=== PATIENT | male | born 1965 | race Caucasian/White ===

== ENCOUNTER 2017-01-09 10:45 | Emergency (ER) | payer SELFPAY ==
[2017-01-09] MEDS ORDERED: NORMAL SALINE 1000 ML 1,000 ML IV ONE (11:10)
[2017-01-09 11:23] LABS: PROTHROMBIN TIME 13.8 SEC (11.4-15.4)
[2017-01-09 11:26] LABS: ABSOLUTE BASOPHILS # (AUTO) 0.1 10^3/uL (0.0-0.2); ABSOLUTE EOSINOPHILS # (AUTO) 0.3 10^3/uL (0.0-0.6); ABSOLUTE LYMPHOCYTES (AUTO) 2.4 10^3/uL (0.5-4.7); ABSOLUTE MONOCYTES (AUTO) 1.6 10^3/uL (0.1-1.4); ABSOLUTE NEUT (AUTO) 6.9 10^3/uL (1.7-8.2); BASOPHILS % (AUTO) 0.7 % (0-2); EOSINOPHILS % (AUTO) 2.4 % (0-6); HEMATOCRIT 39.2 % (37.9-51.0); HEMOGLOBIN 13.2 g/dL (13.5-17.0); HGB HCT DIFFERENCE 0.4; LYMPHOCYTES % (AUTO) 21.3 % (13-45); MEAN CORPUSCULAR HEMOGLOBIN 30.6 pg (27.0-33.4); MEAN CORPUSCULAR HGB CONC 33.6 g/dL (32.0-36.0); MEAN CORPUSCULAR VOLUME 91 fl (80-97); MONOCYTES % (AUTO) 14.2 % (3-13); RED BLOOD COUNT 4.31 10^6/uL (4.35-5.55); RED CELL DISTRIBUTION WIDTH 13.3 % (11.5-14.0); SEGMENTED NEUTROPHILS % (AUTO) 61.4 % (42-78); WHITE BLOOD COUNT 11.3 10^3/uL (4.0-10.5)
[2017-01-09 11:49] LABS: ALANINE AMINOTRANSFERASE 26 U/L (21-72); ALBUMIN 4.1 g/dL (3.5-5.0); ALKALINE PHOSPHATASE 86 U/L (38-126); ANION GAP 14 (5-19); ASPARTATE AMINO TRANSFERASE 17 U/L (17-59); BILIRUBIN,DIRECT 0.5 mg/dL (0.0-0.4); BLOOD UREA NITROGEN 20 mg/dL (7-20); CALCIUM 9.8 mg/dL (8.4-10.2); CARBON DIOXIDE 21 mmol/L (22-30); CHLORIDE 104 mmol/L (98-107); CREATININE RESULT 1.26 mg/dL (0.52-1.25); GLUCOSE 117 mg/dL (75-110); LIPASE 183.5 U/L (23-300); POTASSIUM 4.1 mmol/L (3.6-5.0); SODIUM 138.6 mmol/L (137-145); TOTAL PROTEIN 7.5 g/dL (6.3-8.2)
--- NOTE | 2017-01-09 12:23 | RADIOLOGY REPORT (SQ) ---
EXAM DESCRIPTION: ACUTE ABDOMEN SERIES COMPLETED DATE/TIME: 01/09/2017 12:09 pm REASON FOR STUDY: abdominal pain COMPARISON: None. NUMBER OF VIEWS: Three views. TECHNIQUE: Frontal chest, supine abdomen and upright/decubitus abdomen radiographic images acquired. LIMITATIONS: None. FINDINGS: CHEST: Lungs clear of infiltrates. FREE AIR: None. No abnormal gas collections. BOWEL GAS PATTERN: Nonobstructive pattern. No dilated loops or air fluid levels. CALCIFICATIONS: No suspicious calcifications. HARDWARE: None in the abdomen. SOFT TISSUES: No gross mass or suggestion of organomegaly. BONES: No acute fracture. No worrisome bone lesions. OTHER: No other significant finding. IMPRESSION: NO RADIOGRAPHIC EVIDENCE FOR ACUTE ABDOMINAL DISEASE. TECHNICAL DOCUMENTATION: JOB ID: [id number] [employer]- All Rights Reserved
--- NOTE | 2017-01-09 13:39 | ER Document Report ---
ED GI Bleed / Rectal Pain - General Chief Complaint: Bloody Stools Stated Complaint: BLOOD IN STOOL Time Seen by Provider: 01/09/17 10:57 Notes: Patient is a 51 year old male who presents to the ED complaining of rectal bleeding with lower abdominal pain. States that his GI bleed started 7 days ago and become progressively worse over the past 7 days. Patient states that initially it was 1 bright red blood per rectum bowel movement but over the past 3 days has progressed to multiple bowel movements a day greater than 4 a day that have been jazmine blood with minimal stool. He also admits to lower abdominal pain worse in the right lower quadrant but diffusely tender. Admits to nausea without vomiting. Admits to lightheadedness and dizziness that is gotten worse over the past 2 days. Of hospital records revealed the patient was evaluated here in 2013 for similar complaints and was shown to have ascending colon formation. Patient was discharged on antibiotics and steroids at that time and told to follow-up with gastroenterology. 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. Past medical history significant for of [place] spotted fever, degenerative disc disease. Patient is a current tobacco use with a 66-goja-lowl history, admits to daily alcohol use but has not been drinking over the past week and a half. Denies any drug use. Denies any allergies. TRAVEL OUTSIDE OF THE [place] IN LAST 30 DAYS: No - Related Data Allergies/Adverse Reactions: No Known Allergies Allergy (Verified 07/03/14 02:17) Past Medical History - Social History Smoking Status: Current Every Day Smoker Chew tobacco use (# tins/day): No Frequency of alcohol use: Occasional Drug Abuse: None Family History: CAD, CVA, Hyperlipidemia, Hypertension, Malignancy Patient has suicidal ideation: No Patient has homicidal ideation: No Renal/ Medical History: Denies: Hx Peritoneal Dialysis Musculoskeltal Medical History: Reports Hx Musculoskeletal Deformity, Reports Hx Musculoskeletal Trauma Surgical Hx: Negative - Immunizations Hx Diphtheria, Pertussis, Tetanus Vaccination: Yes Review of Systems - Review of Systems Constitutional: See HPI Cardiovascular: No symptoms reported Respiratory: No symptoms reported Gastrointestinal: See HPI Genitourinary: No symptoms reported -: Yes All other systems reviewed and negative Physical Exam - Vital signs Vitals: Temp Pulse Resp BP Pulse Ox 97.7 F 112 H 22 H 87/43 L 100 01/09/17 10:48 01/09/17 10:48 01/09/17 10:48 01/09/17 10:48 01/09/17 10:48 Interpretation: Hypotensive - Notes Notes: PHYSICAL EXAM GENERAL: Alert, interacts well. HEAD: Normocephalic, atraumatic. EYES: Pupils equal, round, and reactive to light. Extraocular movements intact. ENT: Oral mucosa moist, tongue midline. NECK: Full range of motion. Supple. Trachea midline. LUNGS: Clear to auscultation bilaterally, no wheezes, rales, or rhonchi. No respiratory distress. HEART: Regular rate and rhythm. No murmurs, gallops, or rubs. ABDOMEN: Soft, nondistended, minimally tender diffusely. No guarding, rebound, or rigidity.. Bowel sounds present in all 4 quadrants. RECTAL: tender on digital exam, prostate normal. BRB noted on glove. see labs for guiac EXTREMITIES: Moves all 4 extremities spontaneously. No edema, radial and dorsalis pedis pulses 2/4 bilaterally. No cyanosis. NEUROLOGICAL: Alert and oriented x4. Normal speech. PSYCH: Normal affect, normal mood. SKIN: Warm, dry, normal turgor. No rashes or lesions noted. Course - Re-evaluation Re-evalutation: 01/09/17 13:56 Patient is a 51-year-old male who is hemodynamically stable, no acute distress and afebrile. Patient with positive lower GI bleed with concerns for colon inflammation. Hemoglobin and hematocrit are stable at 13.2/39.2. patient has been noncompliant with follow-up with gastroenterology so has no formal diagnosis of ulcerative colitis or Crohn's. As the patient's symptoms have become progressively worse over the past week, transfer has been initiated to [facility] where GI is available for inpatient evaluation and colonoscopy. Patient has been accepted by Dr. Winslow hospitalist. Patient sent for for CT of the abdomen and pelvis with IV contrast per request of accepting institution CT Abd and Pelvis with IV contrast shows: MILD DIFFUSE MURAL THICKENING INVOLVING THE ENTIRE COLON AND TERMINAL ILEUM COMPATIBLE WITH INFECTIOUS OR INFLAMMATORY BOWEL DISEASE AND SIMILAR IN APPEARANCE TO STUDY FROM 07/03/2014. CORRELATE WITH ANY CLINICAL HISTORY OF CROHN'S OR ULCERATIVE COLITIS. Per [facility] protocol and guidelines, this case was discussed with supervising physician Mariana Villalobos prior to transfer 01/09/17 15:08 Patient has received bed assignment. Transportation pending 01/09/17 16:18 Transport has arrived. patient is stable, no acute distress and afebrile. Blood pressures have remained in the systolics of 100 with a heart rate in the high 90s. Patient states that his pain is 1 out of 5 and nausea has resolved since he received medication. Patient is stable for transportation - Vital Signs Vital signs: Temp Pulse Resp BP Pulse Ox 97.7 F 112 H 15 94/61 L 99 01/09/17 10:48 01/09/17 10:48 01/09/17 15:01 01/09/17 16:01 01/09/17 16:01 - Laboratory Result Diagrams: 01/09/17 11:00 01/09/17 11:00 Laboratory results interpreted by me: 01/09/17 01/09/17 11:00 11:00 WBC 11.3 H RBC 4.31 L Hgb 13.2 L Monocytes % 14.2 H Absolute Monocytes 1.6 H Carbon Dioxide 21 L Creatinine 1.26 H Glucose 117 H Direct Bilirubin 0.5 H - Diagnostic Test Radiology reviewed: Image reviewed, Reports reviewed Discharge - Discharge Clinical Impression: Lower GI bleed Condition: Stable Disposition: [facility] / [facility]
[2017-01-09] MEDS ORDERED: MORPHINE SULFATE 10 MG/ML INJ IV ONE (13:52)
[2017-01-09] MEDS ORDERED: NORMAL SALINE 1000 ML 1,000 ML IV PRN (14:18)
--- NOTE | 2017-01-09 14:32 | RADIOLOGY REPORT (SQ) ---
EXAM DESCRIPTION: CT ABD/PELVIS WITH IV ONLY COMPLETED DATE/TIME: 01/09/2017 2:19 pm REASON FOR STUDY: pain, bright red blood per rectum COMPARISON: 07/03/2014 TECHNIQUE: CT scan of the abdomen and pelvis performed using helical scanning technique with dynamic intravenous contrast injection. No oral contrast. Images reviewed with lung, soft tissue, and bone windows. Reconstructed coronal and sagittal MPR images reviewed. Delayed images for evaluation of the urinary system also acquired. All images stored on PACS. All CT scanners at this facility use dose modulation, iterative reconstruction, and/or weight based d osing when appropriate to reduce radiation dose to as low as reasonably achievable (ALARA). [facility]: Dose Right [facility]: CareDose [facility]: Dose Right [facility]: Teradose 4D [facility]: [employer] CONTRAST TYPE AND DOSE: 93mL Isovue 370- low osmolar. RENAL FUNCTION: Creatinine measures 1.26 RADIATION DOSE: 16.46mGy. LIMITATIONS: None. FINDINGS: LOWER CHEST: No significant findings. No nodules or infiltrates. LIVER: Normal size. No masses or dilated ducts. SPLEEN: Normal size. No focal lesions. PANCREAS: No masses. No significant calcifications. No adjacent inflammation or peripancreatic fluid collections. Pancreatic duct not dilated. GALLBLADDER: No identified stones by CT criteria. No inflammatory changes to suggest cholecystitis. ADRENAL GLANDS: No significant masses or asymmetry. RIGHT KIDNEY AND URETER: No solid masses. No significant calcifications. No hydronephrosis or hyd roureter. LEFT KIDNEY AND URETER: No solid masses. No significant calcifications. No hydronephrosis or hydr oureter. AORTA AND VESSELS: No aneurysm. No dissection. Renal arteries, SMA, celiac without stenosis. RETROPERITONEUM: No retroperitoneal adenopathy, hemorrhage or masses. BOWEL AND PERITONEAL CAVITY: There is mild diffuse mural thickening involving the entire colon and te rminal ileum compatible with infectious or inflammatory bowel disease. No pneumatosis, abscess, or f ree air. APPENDIX: Normal. PELVIS: No mass or free fluid. Normal bladder. ABDOMINAL WALL: No masses. No hernias. BONES: No significant or acute findings. OTHER: No other significant finding. IMPRESSION: MILD DIFFUSE MURAL THICKENING INVOLVING THE ENTIRE COLON AND TERMINAL ILEUM COMPATIBLE W ITH INFECTIOUS OR INFLAMMATORY BOWEL DISEASE AND SIMILAR IN APPEARANCE TO STUDY FROM 07/03/2014. COR RELATE WITH ANY CLINICAL HISTORY OF CROHN'S OR ULCERATIVE COLITIS. TECHNICAL DOCUMENTATION: JOB ID: [id number] Quality ID # [id number]: Final reports with documentation of one or more dose reduction techniques (e.g., Au tomated exposure control, adjustment of the mA and/or kV according to patient size, use of iterative reconstruction technique) 2010 [employer]- All Rights Reserved
[2017-01-09 16:10] VITALS: BP 94/61
== END 2017-01-09 16:38 | disposition short-term general hospital (02) ==
LOC: ER 10:45
DX: K92.2 Gastrointestinal hemorrhage, unspecified (principal); R19.5 Other fecal abnormalities; R10.30 Lower abdominal pain, unspecified; R42 Dizziness and giddiness; R10.10 Upper abdominal pain, unspecified; F17.210 Nicotine dependence, cigarettes, uncomplicated
CPT/HCPCS: 99285; 96374; 36415; 83690; 85025; 85610; 82272; 80053; 83605; 74022; 74177; J2270; J7030

== ENCOUNTER 2017-04-03 01:11 | Emergency (ER) | payer SELFPAY ==
--- NOTE | 2017-04-03 04:39 | ER Document Report ---
HPI - HPI Pain Level: 4 Notes: Patient is a 51-year-old male with a history of Crohn's disease who presents the ED complaining of several issues. Patient complains of left shoulder pain without any known injury. Patient states that the pain does not radiate and stays in that left arm. Patient states that he has difficulty moving that arm due to pain. The pain is described as sharp. Patient also complains of feeling feverish for 2 days with nasal congestion/discharge, and dry cough 1 week. Patient states that he has a sharp pain in his inferior lungs bilaterally. Patient also complains of abdominal pain that is epigastric and right lower quadrant primarily that is sharp and constant. Patient states that he did run out of his Pentasa medication. Patient has been having normal loose stools. He does not have any associated nausea or vomiting. He is tolerating food and liquids. He denies any drug allergies. [facility]. He does not have a manager asset. Denies any headache, documented fever, head injury, neck pain/stiffness, changes in vision/speech/ mentation/hearing, sore throat, palpitations, syncope, shortness of breath, wheeze, dyspnea, nausea/vomiting/diarrhea, urinary retention, dysuria, hematuria , loss of control of bowel or bladder, numbness/tingling, saddle anesthesia, muscle paralysis/weakness, or rash. + smoking. denies drugs or recent ETOH. - ROS Notes: REVIEW OF SYSTEMS: CONSTITUTIONAL : see hpi. Denies recent illness. EENT: see hpi CARDIOVASCULAR: see hpi RESPIRATORY: see hpi GASTROINTESTINAL: see hpi GENITOURINARY: Denies difficulty urinating, painful urination, burning, frequency, blood in urine, or discharge. MUSCULOSKELETAL: see hpi SKIN: Denies rash, lesions or sores. NEUROLOGICAL: Denies confusion or altered mental status. Denies passing out or loss of consciousness. Denies dizziness or lightheadedness. Denies headache. Denies weakness or paralysis or loss of use of either side. Denies problems with gait or speech. Denies sensory loss, numbness, or tingling. ALL OTHER SYSTEMS REVIEWED AND NEGATIVE. Dictation was performed using [employer] voice recognition software - REPRODUCTIVE Reproductive: DENIES: : - DERM Skin Color: Normal, [place] Past Medical History - Social History Smoking Status: Current Every Day Smoker Family History: CAD, CVA, Hyperlipidemia, Hypertension, Malignancy Renal/ Medical History: Denies: Hx Peritoneal Dialysis Musculoskeltal Medical History: Reports Hx Musculoskeletal Deformity, Reports Hx Musculoskeletal Trauma - Immunizations Hx Diphtheria, Pertussis, Tetanus Vaccination: Yes Vertical Provider Document - CONSTITUTIONAL Agree With Documented VS: Yes Notes: PHYSICAL EXAMINATION: GENERAL: Well-appearing, well-nourished and in no acute distress. HEAD: Atraumatic, normocephalic. EYES: Pupils equal round and reactive to light, extraocular movements intact, sclera anicteric, conjunctiva are normal. ENT: EAC clear b/l. TM's intact b/l without erythema, fluid, or perforation. Nares patent and without discharge. oropharynx clear without exudates. No tonsilar hypertrophy or erythema. Moist mucous membranes. No sinus tenderness. NECK: Normal range of motion, supple without lymphadenopathy. No rigidity/ meningismus. LUNGS: Breath sounds clear to auscultation bilaterally and equal. No wheezes rales or rhonchi. HEART: Regular rate and rhythm without murmurs, rubs, gallops. ABDOMEN: Soft, nondistended abdomen. no rebound. No masses appreciated. Normal bowel sounds present. No CVA tenderness bilaterally. + tenderness to palp of the RLQ, LLQ, and epigastrum. + mild guarding. Musculoskeletal: Lt UE: FROM to passive. Pt will not move his arm through ROM. Strength 5+/5. N/V intact. Dr. Quintanilla and I believe that he is exaggerating his pain symptoms. He was c/o severe pain with iv tubing in his arm while blood being drawn out (needle was already withdrawn). No erythema, abrasion, laceration, deformity, or swelling noted to the shoulder. Extremities: No cyanosis, clubbing, or edema b/l. Peripheral pulses 2+. Capillary refill less than 3 seconds. NEUROLOGICAL: Cranial nerves grossly intact. Normal speech. Normal sensory, motor exams PSYCH: Normal mood, normal affect. SKIN: Warm, Dry, normal turgor, no rashes or lesions noted. - INFECTION CONTROL TRAVEL OUTSIDE OF THE [place] IN LAST 30 DAYS: No - RESPIRATORY O2 Sat by Pulse Oximetry: 99 Course - Re-evaluation Re-evalutation: 04/03/17 05:25 Patient is an afebrile, well-hydrated, 51-year-old male who presents the ED with a URI, left shoulder pain, and abdominal pain. Vitals are stable. I suspect that his URI is viral and that his abdominal pain is an acute exacerbation of his COPD. Reviewed case with Dr. Quintanilla who also evaluated the patient and is in agreement with plan/discharge. CBC, CMP, lipase, urinalysis were unremarkable for any acute pathology. Left shoulder x-ray and chest x-ray were unremarkable for any acute pathology. No other imaging warranted at this time. Sling given today. Patient states that he was on Pentasa which worked really well for him until he ran out of medication recently. We will send him home with a new prescription for his Pentasa for a 2 week dose, but patient will need to get a refill within those 2 weeks to continue treatment for his PCM. I will also send him home with voltarin gel to use as needed. Recheck with his PCM this week. Schedule an appointment with gastroenterology. schedule follow-up with orthopedics. Consider consult with physical therapy as well. Return to the ED with any worsening/concerning symptoms otherwise as reviewed in discharge. Patient is in agreement. - Vital Signs Vital signs: Temp Pulse Resp BP Pulse Ox 97.4 F 102 H 16 117/74 99 04/03/17 01:42 04/03/17 01:42 04/03/17 01:42 04/03/17 01:42 04/03/17 01:42 - Laboratory Result Diagrams: 04/03/17 04:20 04/03/17 04:20 Discharge - Discharge Clinical Impression: Crohn disease Qualifiers: Gastrointestinal tract location: unspecified location Digestive disease complication type: without complication Qualified Code(s): K50.90 - Crohn's disease, unspecified, without complications Shoulder pain Qualifiers: Chronicity: acute Laterality: left Qualified Code(s): M25.512 - Pain in left shoulder URI (upper respiratory infection) Qualifiers: URI type: unspecified viral URI Qualified Code(s): J06.9 - Acute upper respiratory infection, unspecified Condition: Stable Disposition: HOME, SELF-CARE Instructions: Abdominal Pain ([facility]), Acetaminophen, Crohn's Disease ([facility]), Ice & Elevation ([facility]), Irritable Bowel Syndrome ([facility]), Temporary Sling ([facility]), Viral Syndrome ([facility]), Warm Packs ([facility]) Additional Instructions: Rest, Ice, Compression, Elevation Use sling as directed Tylenol/ibuprofen as needed Take medication as directed Low fat diet Maintain adequate fluid intake Light stretches daily Strength exercises as able Moist heat and massage may help F/u with your PCP in 2-3 days for a recheck Schedule a f/u with a manager asset* Consider consult(s) with Orthopedics/physical therapy for ongoing/worsening symptoms Return to the ED with any worsening symptoms and/or development of fever, headache, chest pain, palpitations, syncope, shortness of breath, trouble breathing, abdominal pain, n/v/d, blood in stool/urine, loss of control of bowel /bladder, urinary retention, muscle weakness/paralysis, saddle anesthesia, numbness/tingling, redness/swelling/warmth of the shoulder, or other worsening symptoms that are concerning to you. Prescriptions: Diclofenac Sodium [Voltaren] 4 gm TP QID PRN #100 gel..gm. PRN Reason: Mesalamine [Pentasa] 1,000 mg PO QID #112 capsule.sa Forms: Smoking Cessation Education Referrals: LUH HOFFMANN MD [ACTIVE STAFF] - Follow up in 3-5 days [facility] [Provider Group] - Follow up in 3-5 days
[2017-04-03 04:41] LABS: ABSOLUTE BASOPHILS # (AUTO) 0.1 10^3/uL (0.0-0.2); ABSOLUTE EOSINOPHILS # (AUTO) 0.3 10^3/uL (0.0-0.6); ABSOLUTE LYMPHOCYTES (AUTO) 1.3 10^3/uL (0.5-4.7); ABSOLUTE MONOCYTES (AUTO) 0.9 10^3/uL (0.1-1.4); ABSOLUTE NEUT (AUTO) 5.8 10^3/uL (1.7-8.2); BASOPHILS % (AUTO) 0.9 % (0-2); EOSINOPHILS % (AUTO) 3.6 % (0-6); HEMATOCRIT 36.1 % (37.9-51.0); HEMOGLOBIN 11.6 g/dL (13.5-17.0); HGB HCT DIFFERENCE -1.3; LYMPHOCYTES % (AUTO) 15.6 % (13-45); MEAN CORPUSCULAR HEMOGLOBIN 24.2 pg (27.0-33.4); MEAN CORPUSCULAR VOLUME 76 fl (80-97); MONOCYTES % (AUTO) 10.8 % (3-13); RED BLOOD COUNT 4.78 10^6/uL (4.35-5.55); SEGMENTED NEUTROPHILS % (AUTO) 69.1 % (42-78); WHITE BLOOD COUNT 8.4 10^3/uL (4.0-10.5)
[2017-04-03 04:50] LABS: ALANINE AMINOTRANSFERASE 26 U/L (21-72); ALBUMIN 3.6 g/dL (3.5-5.0); ALKALINE PHOSPHATASE 72 U/L (38-126); ANION GAP 9 (5-19); ASPARTATE AMINO TRANSFERASE 15 U/L (17-59); BILIRUBIN,DIRECT 0.4 mg/dL (0.0-0.4); BILIRUBIN,TOTAL 0.5 mg/dL (0.2-1.3); BLOOD UREA NITROGEN 15 mg/dL (7-20); CALCIUM 9.4 mg/dL (8.4-10.2); CARBON DIOXIDE 26 mmol/L (22-30); CHLORIDE 107 mmol/L (98-107); CREATININE RESULT 0.85 mg/dL (0.52-1.25); GLUCOSE 99 mg/dL (75-110); POTASSIUM 4.5 mmol/L (3.6-5.0); SODIUM 141.6 mmol/L (137-145)
--- NOTE | 2017-04-03 05:08 | RADIOLOGY REPORT (SQ) ---
EXAM DESCRIPTION: CHEST SINGLE VIEW COMPLETED DATE/TIME: 04/03/2017 4:48 am REASON FOR STUDY: cough COMPARISON: 11/09/2015. EXAM PARAMETERS: NUMBER OF VIEWS: One view. TECHNIQUE: Single frontal radiographic view of the chest acquired. RADIATION DOSE: NA LIMITATIONS: None. FINDINGS: LUNGS AND PLEURA: No opacities, masses or pneumothorax. No pleural effusion. Prominent in terstitium, chronic. MEDIASTINUM AND HILAR STRUCTURES: No masses. Contour normal. HEART AND VASCULAR STRUCTURES: Heart normal in size. Normal vasculature. BONES: No acute findings. HARDWARE: None in the chest. OTHER: No other significant finding. IMPRESSION: No acute cardiopulmonary findings. TECHNICAL DOCUMENTATION: JOB ID: [id number]
--- NOTE | 2017-04-03 05:10 | RADIOLOGY REPORT (SQ) ---
EXAM DESCRIPTION: SHOULDER LEFT 2 OR MORE VIEWS COMPLETED DATE/TIME: 04/03/2017 4:48 am REASON FOR STUDY: left shoulder pain COMPARISON: None. NUMBER OF VIEWS: Three views. TECHNIQUE: Internal rotation, external rotation, and Y view images acquired of the left shoulder. LIMITATIONS: None. FINDINGS: MINERALIZATION: Normal. BONES: No acute fracture or dislocation. 0.2 cm subchondral degenerative cysts or chronic erosive di sease of distal left clavicle. JOINTS: No dislocation. VISUALIZED LUNGS AND RIBS: No pneumothorax. No rib fracture. SOFT TISSUES: No radiopaque foreign body. OTHER: No other significant finding. IMPRESSION: No acute findings. 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 TECHNICAL DOCUMENTATION: JOB ID: [id number] [employer]- All Rights Reserved
[2017-04-03 05:20] LABS: APPEARANCE,URINE SLIGHTLY-CLOUDY; BILIRUBIN,URINE NEGATIVE (NEGATIVE); CALCIUM OXALATE CRYSTALS,URINE FEW /HPF; GLUCOSE, URINE NEGATIVE (NEGATIVE); KETONES,URINE NEGATIVE (NEGATIVE); LEUKOCYTE ESTERASE,URINE NEGATIVE (NEGATIVE); NITRITE,URINE NEGATIVE (NEGATIVE); PROTEIN,URINE NEGATIVE (NEGATIVE); URINE SPECIFIC GRAVITY 1.033; UROBILINOGEN,URINE NEGATIVE mg/dL (<2.0)
[2017-04-03 05:58] VITALS: BP 114/70
== END 2017-04-03 05:55 | disposition home or self-care (01) ==
LOC: ER 01:11
DX: K50.90 Crohn's disease, unspecified, without complications (principal); J06.9 Acute upper respiratory infection, unspecified; M25.512 Pain in left shoulder; F17.200 Nicotine dependence, unspecified, uncomplicated
CPT/HCPCS: 36415; 71010; 80053; 81001; 83690; 85025; 99284

== ENCOUNTER 2017-10-23 08:55 | Emergency (ER) | payer OTHER ==
--- NOTE | 2017-10-23 10:08 | ER Document Report ---
ED General - General Chief Complaint: Abdominal Pain Stated Complaint: ABDOMINAL PAIN Time Seen by Provider: 10/23/17 09:54 TRAVEL OUTSIDE OF THE [place] IN LAST 30 DAYS: No - HPI Notes: Patient is a 52-year-old male with a history of Crohn's disease who presents to the ED with multiple complaints. Patient states that he has nasal congestion discharge as well as left sinus pressure and left dental pain #14 and body aches. Patient states that he also has a sharp right-sided chest pain that is worse when he pushes on it. The pain does not radiate. Patient also complains of epigastric bloating and cramping. Patient states that his symptoms have been ongoing for the last week. Patient states that he has felt weak for about 2 weeks. Patient states that he is eating and drinking without any difficulties , but does have a decreased p.o. intake. He is urinating normally having normal bowel movements but the last one being this morning. Patient denies any significant cardiopulmonary medical history. Patient does admit to smoking but denies IV drug use. He denies any drug allergies. Denies any prolonged travel , prolonged immobilization, recent surgery/trauma, hormone replacement, previous DVT/PE. Denies any headache, fever, neck pain, URI, sore throat, palpitations, syncope, cough, shortness of breath, wheeze, dyspnea, nausea/ vomiting/diarrhea, urinary retention, dysuria, hematuria, back pain, loss of control of bowel or bladder, numbness/tingling, saddle anesthesia, muscle paralysis/weakness, or rash. - Related Data Allergies/Adverse Reactions: No Known Allergies Allergy (Verified 10/23/17 09:02) Past Medical History - Social History Smoking Status: Current Every Day Smoker Chew tobacco use (# tins/day): No Frequency of alcohol use: None Drug Abuse: None Family History: CAD, CVA, Hyperlipidemia, Hypertension, Malignancy Patient has suicidal ideation: No Patient has homicidal ideation: No Renal/ Medical History: Denies: Hx Peritoneal Dialysis Musculoskeltal Medical History: Reports Hx Musculoskeletal Deformity, Reports Hx Musculoskeletal Trauma Past Surgical History: Reports: Hx Orthopedic Surgery - shrapnel removed from L shoulder - Immunizations Hx Diphtheria, Pertussis, Tetanus Vaccination: Yes Review of Systems - Review of Systems -: Yes All other systems reviewed and negative Physical Exam - Vital signs Vitals: Temp Pulse Resp BP Pulse Ox 98.2 F 89 18 124/76 98 10/23/17 09:16 10/23/17 09:16 10/23/17 09:16 10/23/17 09:16 10/23/17 09:16 - Notes Notes: PHYSICAL EXAMINATION: GENERAL: Well-appearing, well-nourished and in no acute distress. A&Ox4. Answers questions appropriately. Moves around comfortably. HEAD: Atraumatic, normocephalic. EYES: Pupils equal round and reactive to light, extraocular movements intact, sclera anicteric, conjunctiva are normal. ENT: EAC clear b/l. TM's intact b/l without erythema, fluid, or perforation. Nares patent and without discharge. oropharynx clear without exudates. No tonsilar hypertrophy or erythema. Moist mucous membranes. No sinus tenderness. Uvula midline. No palatine shift. No tongue protrusion. No respiratory compromise. Mouth: Poor dentition throughout. + decay and mild gingivitis. No obvious abscess or discharge noted. No facial swelling. + tenderness to tooth #14. NECK: Normal range of motion, supple without lymphadenopathy Chest: + tenderness to the rt lateral chest wall, correlates with pain described. Equal rise/fall. No flail chest. LUNGS: Breath sounds clear to auscultation bilaterally and equal. No wheezes rales or rhonchi. No retractions HEART: Regular rate and rhythm without murmurs, rubs, gallops. ABDOMEN: Soft, nondistended abdomen. No guarding, no rebound. No masses appreciated. Normal bowel sounds present. No CVA tenderness bilaterally. + mild tenderness to the epigastrum. Hartman neg. No tenderness at McBurney point. Musculoskeletal: FROM to passive/active. Strength 5+/5. Sahara neg b/l. Calves are soft, non-tender. Extremities: No cyanosis, clubbing, or edema b/l. Peripheral pulses 2+. Capillary refill less than 3 seconds. NEUROLOGICAL: Cranial nerves grossly intact. Normal speech, normal gait. Normal sensory, motor exams PSYCH: Normal mood, normal affect. SKIN: Warm, Dry, normal turgor, no rashes or lesions noted. Course - Re-evaluation Re-evalutation: 10/23/17 14:03 Patient is an afebrile, well-hydrated, 52-year-old male who presents to the ED with dental pain, suspect infection versus nerve root etiology, chest wall pain , suspect inflammatory. Vitals are acceptable. PE is otherwise unremarkable. CBC, CMP, cardiac enzymes 2/EKG, lipase, chest x-ray, urinalysis were unremarkable for any acute pathology. heart score of 2. No other labs or imaging warranted at this time based on H&P. Low suspicion for any meningitis, sepsis, peritonsillar/pharyngeal abscess, respiratory compromise, Ghassan's, temporal arteritis, ACS, PE, pneumothorax, pericarditis, dissection, respiratory compromise, severe dehydration, or other emergent systemic condition at this time. Patient is aware this condition can change from initial presentation and he needs to monitor symptoms closely. I will send him home with a prescription for penicillin to take as directed. Conservative measures otherwise for symptoms. Call to schedule an appointment with a dentist for further evaluation and management. Recheck with your PCM this week as well. Consider consult with a senior health consultant. Return to the ED with any worsening/concerning symptoms otherwise as reviewed in discharge. Patient is in agreement. - Vital Signs Vital signs: Temp Pulse Resp BP Pulse Ox 98.2 F 89 23 H 116/80 97 10/23/17 09:16 10/23/17 09:16 10/23/17 13:01 10/23/17 13:01 10/23/17 13:01 - Laboratory Result Diagrams: 10/23/17 09:50 10/23/17 09:50 Laboratory results interpreted by me: 10/23/17 10/23/17 10/23/17 09:50 09:50 09:50 RDW 18.2 H Chloride 110 H AST 14 L Creatine Kinase Lipase 309.1 H Urine Urobilinogen 2.0 H 10/23/17 09:50 RDW Chloride AST Creatine Kinase 34 L Lipase Urine Urobilinogen Discharge - Discharge Clinical Impression: Pain, dental, Chest wall pain Condition: Stable Disposition: HOME, SELF-CARE Instructions: Chest Wall Pain ([facility]), Abdominal Pain ([facility]), Penicillin V K ([facility]) , Toothache ([facility]) Additional Instructions: Parsons and floss twice daily Maintain fluid intake Take antibiotics as directed Mouthwash, salt water gargles, peroxide rinse as needed Tylenol/ibuprofen as needed Recheck with PCM this week Call today/tomorrow and schedule an appointment with your dentist for further evaluation Consider consult with a senior health consultant Return to the ED with any worsening symptoms and/or development of fever, headache, facial swelling, swelling of lips/tongue/throat, trouble swallowing, drooling, hoarseness, neck pain/stiffness, chest pain, palpitations, syncope, shortness of breath, trouble breathing, abdominal pain, n/v/d, numbness/tingling , or other worsening symptoms that are concerning to you. Prescriptions: Omeprazole 20 mg PO DAILY #30 tablet. Penicillin V Potassium [Penicillin Vk 250 mg Tablet] 500 mg PO BID #40 tablet Forms: Smoking Cessation Education Referrals: LUH HOFFMANN MD [ACTIVE STAFF] - Follow up as needed AWA SERNA MD [ACTIVE STAFF] - Follow up as needed ELPIDIO MORA MD [ACTIVE STAFF] - Follow up as needed [facility] [Provider Group] - Follow up as needed
[2017-10-23 10:15] LABS: ABSOLUTE BASOPHILS # (AUTO) 0.1 10^3/uL (0.0-0.2); ABSOLUTE EOSINOPHILS # (AUTO) 0.3 10^3/uL (0.0-0.6); ABSOLUTE LYMPHOCYTES (AUTO) 1.4 10^3/uL (0.5-4.7); ABSOLUTE MONOCYTES (AUTO) 0.7 10^3/uL (0.1-1.4); ABSOLUTE NEUT (AUTO) 4.7 10^3/uL (1.7-8.2); BASOPHILS % (AUTO) 0.8 % (0-2); EOSINOPHILS % (AUTO) 4.6 % (0-6); HEMOGLOBIN 14.4 g/dL (13.5-17.0); LYMPHOCYTES % (AUTO) 19.4 % (13-45); MEAN CORPUSCULAR HEMOGLOBIN 29.6 pg (27.0-33.4); MEAN CORPUSCULAR HGB CONC 33.5 g/dL (32.0-36.0); MEAN CORPUSCULAR VOLUME 89 fl (80-97); MONOCYTES % (AUTO) 9.9 % (3-13); PLATELET COUNT 152 10^3/uL (150-450); RED BLOOD COUNT 4.86 10^6/uL (4.35-5.55); RED CELL DISTRIBUTION WIDTH 18.2 % (11.5-14.0); SEGMENTED NEUTROPHILS % (AUTO) 65.3 % (42-78); TOTAL CELLS COUNTED % (AUTO) 100 %; WHITE BLOOD COUNT 7.1 10^3/uL (4.0-10.5)
[2017-10-23 10:21] LABS: APPEARANCE,URINE CLEAR; BILIRUBIN,URINE NEGATIVE (NEGATIVE); COLOR,URINE YELLOW; GLUCOSE, URINE NEGATIVE (NEGATIVE); KETONES,URINE NEGATIVE (NEGATIVE); LEUKOCYTE ESTERASE,URINE NEGATIVE (NEGATIVE); NITRITE,URINE NEGATIVE (NEGATIVE); PROTEIN,URINE NEGATIVE (NEGATIVE); URINE SPECIFIC GRAVITY 1.027
[2017-10-23 10:38] LABS: ALANINE AMINOTRANSFERASE 25 U/L (21-72); ALBUMIN 4.1 g/dL (3.5-5.0); ALKALINE PHOSPHATASE 64 U/L (38-126); ANION GAP 9 (5-19); ASPARTATE AMINO TRANSFERASE 14 U/L (17-59); BILIRUBIN,DIRECT 0.4 mg/dL (0.0-0.4); BILIRUBIN,TOTAL 0.5 mg/dL (0.2-1.3); BLOOD UREA NITROGEN 11 mg/dL (7-20); CALCIUM 9.1 mg/dL (8.4-10.2); CARBON DIOXIDE 23 mmol/L (22-30); CHLORIDE 110 mmol/L (98-107); GLUCOSE 98 mg/dL (75-110); LIPASE 309.1 U/L (23-300); POTASSIUM 4.3 mmol/L (3.6-5.0); SODIUM 142.2 mmol/L (137-145); TOTAL PROTEIN 7.3 g/dL (6.3-8.2)
--- NOTE | 2017-10-23 10:40 | RADIOLOGY REPORT (SQ) ---
EXAM DESCRIPTION: CHEST PA/LAT COMPLETED DATE/TIME: 10/23/2017 10:29 am REASON FOR STUDY: epigastric/chest pain COMPARISON: None. EXAM PARAMETERS: NUMBER OF VIEWS: two views TECHNIQUE: Digital Frontal and Lateral radiographic views of the chest acquired. RADIATION DOSE: NA LIMITATIONS: none FINDINGS: LUNGS AND PLEURA: No opacities, masses or pneumothorax. No pleural effusion. MEDIASTINUM AND HILAR STRUCTURES: No masses or contour abnormalities. HEART AND VASCULAR STRUCTURES: Heart normal size. No evidence for failure. BONES: No acute findings. HARDWARE: None in the chest. OTHER: No other significant finding. IMPRESSION: NO SIGNIFICANT RADIOGRAPHIC FINDING IN THE CHEST. TECHNICAL DOCUMENTATION: JOB ID: [id number] [employer]- All Rights Reserved Reading location - IP/workstation name: [email or web address]
[2017-10-23 10:53] LABS: CREATINE KINASE MB < 0.22 ng/mL (<4.55); TROPONIN I < 0.012 ng/mL
[2017-10-23] MEDS: NORMAL SALINE 1000 ML 1,000 ML IV PRN ×2 (11:12→12:55)
--- NOTE | 2017-10-23 13:17 | EKG REPORT ---
SEVERITY:- NORMAL ECG - SINUS RHYTHM : Confirmed by: Moisés Santiago MD 23-Oct-2017 13:16:11
[2017-10-23 14:09] VITALS: BP 121/92
== END 2017-10-23 14:29 | disposition home or self-care (01) ==
LOC: ER 08:55
DX: K02.9 Dental caries, unspecified (principal); K05.10 Chronic gingivitis, plaque induced; R07.89 Other chest pain; K08.89 Other specified disorders of teeth and supporting structures; R09.81 Nasal congestion; J34.89 Other specified disorders of nose and nasal sinuses; R10.13 Epigastric pain; R53.1 Weakness; F17.200 Nicotine dependence, unspecified, uncomplicated; Z82.49 Family history of ischemic heart disease and other diseases of the circulatory system; Z87.19 Personal history of other diseases of the digestive system
CPT/HCPCS: 93005; 99284; 96360; 96361; 36415; 82553; 82550; 83690; 85025; 80053; 81001; 84484; 71046; 93010; J7030

== ENCOUNTER 2018-01-29 17:35 | Emergency (ER) | payer SELFPAY ==
[2018-01-29 18:00] VITALS: BP 108/72
--- NOTE | 2018-01-29 18:49 | EKG REPORT ---
SEVERITY:- NORMAL ECG - SINUS RHYTHM : Confirmed by: Joy Sofia 29-Jan-2018 18:48:49
== END 2018-01-29 18:38 | disposition left against medical advice (07) ==
LOC: ER 17:35
DX: Z53.21 Procedure and treatment not carried out due to patient leaving prior to being seen by health care provider (principal)
CPT/HCPCS: 93005; 93010

== ENCOUNTER 2018-02-02 23:40 | Emergency (ER) | payer SELFPAY ==
[2018-02-03] MEDS ORDERED: OXYCODONE-ACETAMINOPHEN 5-325 MG TABLET PO ONE (01:32)
--- NOTE | 2018-02-03 01:33 | ER Document Report ---
ED General - General Chief Complaint: Flank Pain Stated Complaint: NECK PAIN,LEFT SIDE PAIN Time Seen by Provider: 02/03/18 01:19 Notes: Patient is a 52-year-old male with a history of Crohn's disease that comes emergency department for chief complaint of pain that is sharp in his left upper abdomen and left lower rib area, he states this has been worsening during the day today, he states that he can press on the exact area of sharp pain and it feels like it is directly over the rib. He cannot recall an injury. He also reports pain in his right upper neck, states he thinks he pulled it, states this has been working for 1 week and now he has trouble turning his neck. He denies associated headache, vomiting, fever, he denies any other symptoms. He takes no daily medications. He states he had a Crohn's flare a few days ago but this resolved. TRAVEL OUTSIDE OF THE [place] IN LAST 30 DAYS: No - Related Data Allergies/Adverse Reactions: No Known Allergies Allergy (Verified 10/23/17 09:02) Past Medical History - General Information source: Patient - Social History Smoking Status: Never Smoker Frequency of alcohol use: None Drug Abuse: None Lives with: Family Family History: CAD, CVA, Hyperlipidemia, Hypertension, Malignancy Patient has suicidal ideation: No Patient has homicidal ideation: No Renal/ Medical History: Denies: Hx Peritoneal Dialysis GI Medical History: Reports: Hx Crohn's Disease Musculoskeltal Medical History: Reports Hx Musculoskeletal Deformity, Reports Hx Musculoskeletal Trauma Past Surgical History: Reports: Hx Orthopedic Surgery - shrapnel removed from L shoulder - Immunizations Hx Diphtheria, Pertussis, Tetanus Vaccination: Yes Review of Systems - Review of Systems Constitutional: No symptoms reported EENT: No symptoms reported Cardiovascular: No symptoms reported Respiratory: See HPI Gastrointestinal: See HPI Genitourinary: No symptoms reported Male Genitourinary: No symptoms reported Musculoskeletal: See HPI Skin: No symptoms reported Hematologic/Lymphatic: No symptoms reported Neurological/Psychological: No symptoms reported Physical Exam - Vital signs Vitals: Temp Pulse Resp BP Pulse Ox 98.7 F 89 20 117/79 98 02/03/18 00:10 02/03/18 00:10 02/03/18 00:10 02/03/18 00:10 02/03/18 00:10 - Notes Notes: GENERAL: Alert, interacts well. No acute distress. HEAD: Normocephalic, atraumatic. EYES: Pupils equal, round, and reactive to light. Extraocular movements intact. ENT: Oral mucosa moist, tongue midline. NECK: Full range of motion. Supple. Trachea midline. LUNGS: Clear to auscultation bilaterally, no wheezes, rales, or rhonchi. No respiratory distress. Tender with palpation over the left lower ribs, reproducible. No crepitus or ecchymosis, no abnormal erythema. HEART: Regular rate and rhythm. No murmur ABDOMEN: Soft, non-tender. Non-distended. Bowel sounds present in all 4 quadrants. EXTREMITIES: Moves all 4 extremities spontaneously. No edema, normal radial and dorsalis pedis pulses bilaterally. No cyanosis. BACK: no cervical, thoracic, lumbar midline tenderness. No saddle anesthesia, normal distal neurovascular exam. Tenderness over the right paracervical and trapezius areas, also slightly on the left, some limited lateral range of motion of the neck, normal flexion and extension of the neck. NEUROLOGICAL: Alert and oriented x3. Normal speech. [cranial nerves II through XII grossly intact]. PSYCH: Normal affect, normal mood. SKIN: Warm, dry, normal turgor. No rashes or lesions noted. Course - Re-evaluation Re-evalutation: Patient with what appears to be very specific musculoskeletal pain on examination specifically in his paracervical muscles and trapezius areas with poor lateral range of motion and stiffness. No nuchal rigidity. No headache. He also has palpable pain over the left lower ribs, abdomen is unremarkable, CBC and chemistry unremarkable, lipase not significantly changed from prior. CXR unremarkable. Vital signs unremarkable. Discussed results with patient in detail. Discussed treatment recommendations, follow-up, and return precautions. Patient states satisfaction and agreement. - Vital Signs Vital signs: Temp Pulse Resp BP Pulse Ox 98.8 F 85 16 110/74 97 02/03/18 03:01 02/03/18 03:01 02/03/18 03:01 02/03/18 03:01 02/03/18 03:01 - Laboratory Result Diagrams: 02/03/18 02:00 02/03/18 02:00 Laboratory results interpreted by me: 02/03/18 02:00 Lipase 371.9 H Discharge - Discharge Clinical Impression: Rib pain on left side, Neck pain Condition: Stable Disposition: HOME, SELF-CARE Additional Instructions: Workup does not show any concerning abnormalities. Examination is suggestive of musculoskeletal source of pain including muscle spasm. Recommendation is to take the Valium as prescribed for the first couple of days, apply heat to your neck and your ribs, perform gentle range of motion, avoid lifting or twisting. After the first couple days start taking the other muscle relaxer (do not take them at the same time). Follow-up with primary care. Return if you worsen including numbness, fever, difficulty breathing, abdominal pain, or any other concerning or worsening symptoms. Prescriptions: Diazepam [Valium 5 mg Tablet] 1 - 2 tab PO TID #10 tablet Methocarbamol [Robaxin 750 mg Tablet] 750 mg PO Q6 #20 tablet
[2018-02-03 02:09] LABS: ABSOLUTE BASOPHILS # (AUTO) 0.1 10^3/uL (0.0-0.2); ABSOLUTE EOSINOPHILS # (AUTO) 0.3 10^3/uL (0.0-0.6); ABSOLUTE LYMPHOCYTES (AUTO) 1.7 10^3/uL (0.5-4.7); ABSOLUTE MONOCYTES (AUTO) 0.9 10^3/uL (0.1-1.4); ABSOLUTE NEUT (AUTO) 4.9 10^3/uL (1.7-8.2); EOSINOPHILS % (AUTO) 4.1 % (0-6); HEMATOCRIT 42.1 % (37.9-51.0); HEMOGLOBIN 14.3 g/dL (13.5-17.0); LYMPHOCYTES % (AUTO) 21.3 % (13-45); MEAN CORPUSCULAR HEMOGLOBIN 31.2 pg (27.0-33.4); MEAN CORPUSCULAR VOLUME 92 fl (80-97); MONOCYTES % (AUTO) 11.5 % (3-13); PLATELET COUNT 290 10^3/uL (150-450); RED BLOOD COUNT 4.59 10^6/uL (4.35-5.55); RED CELL DISTRIBUTION WIDTH 13.6 % (11.5-14.0); SEGMENTED NEUTROPHILS % (AUTO) 62.1 % (42-78); TOTAL CELLS COUNTED % (AUTO) 100 %; WHITE BLOOD COUNT 7.8 10^3/uL (4.0-10.5)
[2018-02-03 02:20] LABS: ALANINE AMINOTRANSFERASE 28 U/L (21-72); ALBUMIN 3.8 g/dL (3.5-5.0); ALKALINE PHOSPHATASE 73 U/L (38-126); ANION GAP 13 (5-19); ASPARTATE AMINO TRANSFERASE 19 U/L (17-59); BILIRUBIN,DIRECT 0.4 mg/dL (0.0-0.4); BILIRUBIN,TOTAL 0.5 mg/dL (0.2-1.3); BLOOD UREA NITROGEN 15 mg/dL (7-20); CALCIUM 9.4 mg/dL (8.4-10.2); CARBON DIOXIDE 23 mmol/L (22-30); CHLORIDE 106 mmol/L (98-107); GLUCOSE 93 mg/dL (75-110); LIPASE 371.9 U/L (23-300); POTASSIUM 4.1 mmol/L (3.6-5.0); TOTAL PROTEIN 7.1 g/dL (6.3-8.2)
--- NOTE | 2018-02-03 02:28 | RADIOLOGY REPORT (SQ) ---
EXAM DESCRIPTION: XR CHEST 2 VIEWS COMPLETED DATE/TME: 02/03/2018 01:31 CLINICAL HISTORY: 52 years Male, pain in left lower rib area COMPARISON: None. FINDINGS: Adequate lung volume, small atelectasis or scar bilateral lower lobes, normal cardiac silhouette, and intact bony thorax. IMPRESSION: No acute cardiopulmonary findings.
[2018-02-03 03:02] VITALS: BP 110/74
== END 2018-02-03 03:02 | disposition home or self-care (01) ==
LOC: ER 23:40
DX: R07.81 Pleurodynia (principal); M54.2 Cervicalgia
CPT/HCPCS: 36415; 71046; 80053; 83690; 85025; 99284

== ENCOUNTER 2018-02-07 20:37 | Emergency (ER) | payer SELFPAY ==
[2018-02-07] MEDS ORDERED: OXYCODONE-ACETAMINOPHEN 5-325 MG TABLET PO ONE (21:32)
--- NOTE | 2018-02-07 21:33 | ER Document Report ---
ED Medical Screen (RME) - General Chief Complaint: Abdominal Pain Stated Complaint: SIDE PAIN/BLOOD IN STOOL Time Seen by Provider: 02/07/18 21:30 Mode of Arrival: Ambulatory Information source: Patient Notes: Patient presents complaining of left lateral side pain for the past 6 days. Patient reports having blood in his stool for the past week. Patient does report cough early a day. Patient states he has had 4-5 bloody bowel movements today. Patient has a history of Crohn's and suspects a flareup of the same today. I have greeted and performed a rapid initial assessment of this patient. A comprehensive ED assessment and evaluation of the patient, analysis of test results and completion of the medical decision making process will be conducted by additional ED providers. TRAVEL OUTSIDE OF THE [place] IN LAST 30 DAYS: No - Related Data Allergies/Adverse Reactions: No Known Allergies Allergy (Verified 02/07/18 20:39) Past Medical History Renal/ Medical History: Denies: Hx Peritoneal Dialysis GI Medical History: Reports: Hx Crohn's Disease Musculoskeltal Medical History: Reports Hx Musculoskeletal Deformity, Reports Hx Musculoskeletal Trauma Past Surgical History: Reports: Hx Orthopedic Surgery - shrapnel removed from L shoulder - Immunizations Hx Diphtheria, Pertussis, Tetanus Vaccination: Yes Physical Exam - Vital signs Vitals: Temp Pulse Resp BP Pulse Ox 98.6 F 103 H 20 121/79 96 02/07/18 20:53 02/07/18 20:53 02/07/18 20:53 02/07/18 20:53 02/07/18 20:53 - Abdominal Tenderness: Tender - Left lateral side tenderness Course - Vital Signs Vital signs: Temp Pulse Resp BP Pulse Ox 98.6 F 103 H 20 121/79 96 02/07/18 20:53 02/07/18 20:53 02/07/18 20:53 02/07/18 20:53 02/07/18 20:53
[2018-02-07 22:21] LABS: ABSOLUTE BASOPHILS # (AUTO) 0.1 10^3/uL (0.0-0.2); ABSOLUTE EOSINOPHILS # (AUTO) 0.4 10^3/uL (0.0-0.6); ABSOLUTE LYMPHOCYTES (AUTO) 1.7 10^3/uL (0.5-4.7); ABSOLUTE NEUT (AUTO) 5.5 10^3/uL (1.7-8.2); EOSINOPHILS % (AUTO) 4.3 % (0-6); HEMATOCRIT 43.9 % (37.9-51.0); MEAN CORPUSCULAR HEMOGLOBIN 31.2 pg (27.0-33.4); MEAN CORPUSCULAR HGB CONC 34.2 g/dL (32.0-36.0); MEAN CORPUSCULAR VOLUME 91 fl (80-97); PLATELET COUNT 365 10^3/uL (150-450); RED BLOOD COUNT 4.82 10^6/uL (4.35-5.55); RED CELL DISTRIBUTION WIDTH 13.9 % (11.5-14.0); SEGMENTED NEUTROPHILS % (AUTO) 63.7 % (42-78); TOTAL CELLS COUNTED % (AUTO) 100 %; WHITE BLOOD COUNT 8.7 10^3/uL (4.0-10.5)
--- NOTE | 2018-02-07 22:24 | RADIOLOGY REPORT (SQ) ---
EXAM DESCRIPTION: ACUTE ABDOMEN SERIES COMPLETED DATE/TIME: 02/07/2018 10:05 pm REASON FOR STUDY: L lat side pain, hx crohns, rectal bleeding COMPARISON: 01/09/2017. NUMBER OF VIEWS: Three views. TECHNIQUE: Frontal chest, supine abdomen and upright/decubitus abdomen radiographic images acquired. LIMITATIONS: None. FINDINGS: CHEST: Lungs clear of infiltrates. FREE AIR: None. No abnormal gas collections. BOWEL GAS PATTERN: Nonobstructive pattern. No dilated loops or air fluid levels. CALCIFICATIONS: No suspicious calcifications. HARDWARE: None in the abdomen. SOFT TISSUES: No gross mass or suggestion of organomegaly. BONES: No acute fracture. No worrisome bone lesions. OTHER: No other significant finding. IMPRESSION: NO RADIOGRAPHIC EVIDENCE FOR ACUTE ABDOMINAL DISEASE. TECHNICAL DOCUMENTATION: JOB ID: [id number] [employer]- All Rights Reserved Reading location - IP/workstation name: [email or web address]
[2018-02-07 22:27] LABS: INTERNATIONAL RATION (INR) 0.94; PROTHROMBIN TIME 13.1 SEC (11.4-15.4)
[2018-02-07 22:34] LABS: ALANINE AMINOTRANSFERASE 42 U/L (21-72); ALBUMIN 4.5 g/dL (3.5-5.0); ALKALINE PHOSPHATASE 72 U/L (38-126); ANION GAP 14 (5-19); ASPARTATE AMINO TRANSFERASE 34 U/L (17-59); BILIRUBIN,DIRECT 0.4 mg/dL (0.0-0.4); BILIRUBIN,TOTAL 0.5 mg/dL (0.2-1.3); BLOOD UREA NITROGEN 15 mg/dL (7-20); CALCIUM 9.9 mg/dL (8.4-10.2); CARBON DIOXIDE 28 mmol/L (22-30); CHLORIDE 102 mmol/L (98-107); GLUCOSE 87 mg/dL (75-110); LIPASE 361.7 U/L (23-300); POTASSIUM 4.8 mmol/L (3.6-5.0); SODIUM 143.5 mmol/L (137-145); TOTAL PROTEIN 8.3 g/dL (6.3-8.2)
[2018-02-07] MEDS ORDERED: NORMAL SALINE 1000 ML 1,000 ML IV ONE ×2 (22:47→22:48)
[2018-02-07] MEDS ORDERED: NORMAL SALINE 1000 ML 1,000 ML IV PRN ×2 (22:47→22:48)
[2018-02-07 23:33] LABS: APPEARANCE,URINE CLEAR; BILIRUBIN,URINE SMALL (NEGATIVE); COLOR,URINE YELLOW; GLUCOSE, URINE NEGATIVE (NEGATIVE); KETONES,URINE NEGATIVE (NEGATIVE); LEUKOCYTE ESTERASE,URINE NEGATIVE (NEGATIVE); NITRITE,URINE NEGATIVE (NEGATIVE); PROTEIN,URINE NEGATIVE (NEGATIVE); UROBILINOGEN,URINE NEGATIVE mg/dL (<2.0)
[2018-02-07] MEDS ORDERED: LACTULOSE SYRUP 20 GM/30 ML UDCUP PO ONE (23:50)
[2018-02-08] MEDS ORDERED: TRAMADOL HCL 50 MG TABLET PO ONE (01:21)
--- NOTE | 2018-02-08 01:48 | RADIOLOGY REPORT (SQ) ---
EXAM DESCRIPTION: CT ABDOMEN PELVIS WITH IV CONTRAST COMPLETED DATE/TME: 02/08/2018 00:00 EXAM DESCRIPTION: CT ABDOMEN AND PELVIS WITH CONTRAST CLINICAL HISTORY: L Abdominal pain COMPARISON: 01/09/2017 TECHNIQUE: CT of the abdomen and pelvis performed following IV administration of 90 mL of Isovue-370. DLP: 1050.28 mGycm FINDINGS: Lung Bases: Minimal dependent atelectasis. Bones: No destructive bone lesions identified. Mild degenerative spondylosis of the visualized thoracic and lumbar spine. Abdomen: Liver: The liver has normal size and density. No intrahepatic mass or biliary dilatation. Gallbladder: No calcified gallstones. Spleen, Pancreas, and Adrenal Glands: The spleen, pancreas, and adrenal glands are unremarkable. Kidneys: The kidneys have normal size and contour without evidence of solid mass or hydronephrosis. Vasculature: Aortoiliac atherosclerosis. IVC is unremarkable. The portal vein is patent. The proximal visceral and renal arteries are patent. Stomach: The stomach and duodenum have normal course. Other: No free intraperitoneal air. No free fluid or lymphadenopathy. Pelvis: Bladder: Urinary bladder is unremarkable. Bowel: No dilated loops of large or small bowel. Mild wall thickening of the transverse and descending colon. Appendix: Normal appendix. Pelvis: Prostate is not enlarged. IMPRESSION: 1. Mild wall thickening of the transverse and descending colon. This could be seen with colitis of infectious or inflammatory etiology. Confirmation for appropriate colorectal cancer screening history recommended to exclude other etiologies of colonic wall thickening. This exam was performed according to our departmental dose-optimization program, which includes automated exposure control, adjustment of the mA and/or kV according to patient size and/or use of iterative reconstruction technique.
--- NOTE | 2018-02-08 02:15 | ER Document Report ---
ED GI/ - General Chief Complaint: Abdominal Pain Stated Complaint: SIDE PAIN/BLOOD IN STOOL Time Seen by Provider: 02/07/18 21:30 Mode of Arrival: Ambulatory Notes: Chief complaint: Abdominal pain History of complain:( obtained from----patient) 52 years old male with a history of colitis presents today with left upper quadrant abdominal pain. He was seen here within 24 hours had workup done and subsequently discharged home. Denies any fever chills Nausea vomiting. Denies any diarrhea or constipation. Claims the pain is increased on change of position and movement. Has a history of Crohn's disease, not been taking any medications. Due to lack of insurance. So he states. Onset: As above Duration: Last few days Severity: Moderate Quality: Sharp Context: Noncompliant Exacerbating factor and relieving factors: Change of position REVIEW OF SYSTEMS: CONSTITUTIONAL : Denies fever, chills, or sweats. Denies recent illness. EENT: Denies eye, ear, throat, or mouth pain or symptoms. Denies nasal or sinus congestion or discharge. Denies throat, tongue, or mouth swelling or difficulty swallowing. CARDIOVASCULAR: Denies chest pain. Denies palpitations or racing or irregular heart beat. Denies ankle edema. RESPIRATORY: Denies cough, cold, or chest congestion. Denies shortness of breath, difficulty breathing, or wheezing. GASTROINTESTINAL: Denies distention. Denies nausea, vomiting, or diarrhea. Denies blood in vomitus, stools, or per rectum. Denies black, tarry stools. Denies constipation. GENITOURINARY: Denies difficulty urinating, painful urination, burning, frequency, blood in urine, or discharge. FEMALE GENITOURINARY: Denies vaginal bleeding, heavy or abnormal periods, irregular periods. Denies vaginal discharge or odor. MUSCULOSKELETAL: Denies back or neck pain or stiffness. Denies joint pain or swelling. SKIN: Denies rash, lesions or sores. HEMATOLOGIC : Denies easy bruising or bleeding. LYMPHATIC: Denies swollen, enlarged glands. NEUROLOGICAL: Denies confusion or altered mental status. Denies passing out or loss of consciousness. Denies dizziness or lightheadedness. Denies headache. Denies weakness or paralysis or loss of use of either side. Denies problems with gait or speech. Denies sensory loss, numbness, or tingling. Denies seizures. PSYCHIATRIC: Denies anxiety or stress. Denies depression, suicidal ideation, or homicidal ideation. ALL OTHER SYSTEMS REVIEWED AND NEGATIVE. PHYSICAL EXAMINATION: GENERAL: Well-appearing, well-nourished and in no acute distress. HEAD: Atraumatic, normocephalic. EYES: Pupils equal round and reactive to light, extraocular movements intact, conjunctiva are normal. ENT: Nares patent, oropharynx clear without exudates. Moist mucous membranes. NECK: Normal range of motion, supple without lymphadenopathy LUNGS: Breath sounds clear to auscultation bilaterally and equal. No wheezes rales or rhonchi. HEART: Regular rate and rhythm without murmurs ABDOMEN: Soft, left upper quadrant tenderness on palpation no rebound tenderness or guarding, nondistended abdomen. No guarding, no rebound. No masses appreciated. Examination of genitals-deferred Musculoskeletal: Normal range of motion, no pitting or edema. No cyanosis. NEUROLOGICAL: Cranial nerves grossly intact. Normal speech, normal gait. Normal sensory, motor exams PSYCH: Normal mood, normal affect. SKIN: Warm, Dry, normal turgor, no rashes or lesions noted. Dictation was performed using [employer] voice recognition software TRAVEL OUTSIDE OF THE [place] IN LAST 30 DAYS: No - HPI Notes: 02/08/18 02:10 Dictated - Related Data Allergies/Adverse Reactions: No Known Allergies Allergy (Verified 02/07/18 20:39) Past Medical History - General Information source: Patient - Social History Smoking Status: Unknown if Ever Smoked Cigarette use (# per day): No Chew tobacco use (# tins/day): No Smoking Education Provided: No Frequency of alcohol use: Rare Drug Abuse: None Lives with: Family Family History: CAD, CVA, Hyperlipidemia, Hypertension, Malignancy Patient has suicidal ideation: No Patient has homicidal ideation: No Renal/ Medical History: Denies: Hx Peritoneal Dialysis GI Medical History: Reports: Hx Crohn's Disease Musculoskeltal Medical History: Reports Hx Musculoskeletal Deformity, Reports Hx Musculoskeletal Trauma Past Surgical History: Reports: Hx Orthopedic Surgery - shrapnel removed from L shoulder - Immunizations Hx Diphtheria, Pertussis, Tetanus Vaccination: Yes Review of Systems - Review of Systems Notes: Dictated Physical Exam - Vital signs Vitals: Temp Pulse Resp BP Pulse Ox 98.6 F 103 H 20 121/79 96 02/07/18 20:53 02/07/18 20:53 02/07/18 20:53 02/07/18 20:53 02/07/18 20:53 - Notes Notes: Dictated Course - Vital Signs Vital signs: Temp Pulse Resp BP Pulse Ox 98.6 F 103 H 20 121/79 96 02/07/18 20:53 02/07/18 20:53 02/07/18 20:53 02/07/18 20:53 02/07/18 20:53 - Laboratory Result Diagrams: 02/07/18 22:08 02/07/18 22:08 Laboratory results interpreted by me: 02/07/18 02/07/18 02/07/18 22:08 22:08 22:08 APTT 39.0 H Total Protein 8.3 H Lipase 361.7 H Urine Bilirubin SMALL H - Diagnostic Test Radiology reviewed: Reports reviewed - CT of the abdomen and pelvis done with contrast. Shows transverse and descending colon thickening suggestive of colitis Discharge - Discharge Clinical Impression: Colitis Abdominal pain Qualifiers: Abdominal location: left upper quadrant Qualified Code(s): R10.12 - Left upper quadrant pain Condition: Fair Disposition: HOME, SELF-CARE Instructions: Abdominal Pain ([facility]), Colitis, Nonspecific ([facility])
[2018-02-08 02:42] VITALS: BP 128/82
--- NOTE | 2018-02-08 07:39 | EKG REPORT ---
SEVERITY:- NORMAL ECG - SINUS RHYTHM : Confirmed by: Hamida Song MD 08-Feb-2018 07:39:00
== END 2018-02-08 02:42 | disposition home or self-care (01) ==
LOC: ER 20:37
DX: K52.9 Noninfective gastroenteritis and colitis, unspecified (principal); R10.12 Left upper quadrant pain
CPT/HCPCS: 93005; 99284; 96360; 96361; 36415; 83690; 85025; 85610; 85730; 80053; 81001; 74022; 74177; 93010; J7030

== ENCOUNTER 2018-02-25 23:25 | Emergency (ER) | payer SELFPAY ==
[2018-02-26 00:38] LABS: HEMOGLOBIN 13.6 g/dL (13.5-17.0); MEAN CORPUSCULAR VOLUME 88 fl (80-97); PLATELET COUNT 315 10^3/uL (150-450); RED BLOOD COUNT 4.53 10^6/uL (4.35-5.55); RED CELL DISTRIBUTION WIDTH 13.5 % (11.5-14.0); WHITE BLOOD COUNT 8.7 10^3/uL (4.0-10.5)
[2018-02-26 00:52] LABS: ALANINE AMINOTRANSFERASE 45 U/L (21-72); ALBUMIN 3.8 g/dL (3.5-5.0); ALKALINE PHOSPHATASE 78 U/L (38-126); ANION GAP 10 (5-19); ASPARTATE AMINO TRANSFERASE 31 U/L (17-59); BILIRUBIN,DIRECT 0.4 mg/dL (0.0-0.4); BILIRUBIN,TOTAL 0.5 mg/dL (0.2-1.3); BLOOD UREA NITROGEN 15 mg/dL (7-20); CALCIUM 9.4 mg/dL (8.4-10.2); CARBON DIOXIDE 27 mmol/L (22-30); CHLORIDE 104 mmol/L (98-107); GLUCOSE 97 mg/dL (75-110); POTASSIUM 4.3 mmol/L (3.6-5.0); SODIUM 141.1 mmol/L (137-145); TOTAL PROTEIN 7.4 g/dL (6.3-8.2)
[2018-02-26] MEDS ORDERED: METHYLPREDNISOLONE INJ 500 MG VIAL IV ONE (01:55)
[2018-02-26] MEDS ORDERED: KETOROLAC TROMETHAMINE INJ/PF 30 MG/1 ML SDV IV ONE (01:55)
[2018-02-26] MEDS ORDERED: NORMAL SALINE 1000 ML 1,000 ML IV ONE (01:55)
[2018-02-26] MEDS ORDERED: MORPHINE SULFATE 10 MG/ML INJ IV PRN (01:55)
--- NOTE | 2018-02-26 01:56 | ER Document Report ---
ED General - General Chief Complaint: Bloody Stools Stated Complaint: BLOODY STOOL Time Seen by Provider: 02/26/18 00:14 Notes: Patient is a 52-year-old male with a past medical history of Crohn's disease who presents with 1 month of intermittent, generalized, cramping abdominal pain with associated melena and hematochezia. Patient states that he was seen in the emergency department earlier this month, prescribed a medication for his Crohn's disease but is unable to take it because it cost too much to fill. He states that his symptoms feel very similar to when he has had severe Crohn's exacerbations in the past. He does not have access to a GI doctor currently due to lack of insurance. He denies any hematemesis or vomiting. He has not had a reported fever at home. Nothing seems to improve or worsen his symptoms. Nothing is new or different about her symptoms today that prompted a visit to the emergency department other than their failure to resolve. TRAVEL OUTSIDE OF THE [place] IN LAST 30 DAYS: No - Related Data Allergies/Adverse Reactions: No Known Allergies Allergy (Verified 02/07/18 20:39) Past Medical History - General Information source: Patient - Social History Smoking Status: Never Smoker Frequency of alcohol use: None Drug Abuse: None Lives with: Alone Family History: CAD, CVA, Hyperlipidemia, Hypertension, Malignancy Renal/ Medical History: Denies: Hx Peritoneal Dialysis GI Medical History: Reports: Hx Crohn's Disease Musculoskeletal Medical History: Reports Hx Musculoskeletal Deformity, Reports Hx Musculoskeletal Trauma Past Surgical History: Reports: Hx Orthopedic Surgery - shrapnel removed from L shoulder - Immunizations Hx Diphtheria, Pertussis, Tetanus Vaccination: Yes Review of Systems - Review of Systems Notes: Constitutional: Negative for fever. HENT: Negative for sore throat. Eyes: Negative for visual changes. Cardiovascular: Negative for chest pain. Respiratory: Negative for shortness of breath. Gastrointestinal: Positive for abdominal pain, diarrhea, hematochezia Genitourinary: Negative for dysuria. Musculoskeletal: Negative for back pain. Skin: Negative for rash. Neurological: Negative for headaches, weakness or numbness. 10 point ROS negative except as marked above and in HPI. Physical Exam - Vital signs Vitals: Temp Pulse Resp BP Pulse Ox 99.3 F 104 H 15 103/83 97 02/25/18 23:48 02/25/18 23:48 02/25/18 23:48 02/25/18 23:48 02/25/18 23:48 Interpretation: Tachycardic Notes: PHYSICAL EXAMINATION: GENERAL: Appears moderately uncomfortable but in no acute distress HEAD: Atraumatic, normocephalic. EYES: Pupils equal round and reactive to light, extraocular movements intact, sclera anicteric, conjunctiva are normal. ENT: nares patent, oropharynx clear without exudates. Moderately dry mucous membranes. NECK: Normal range of motion, supple without lymphadenopathy LUNGS: Breath sounds clear to auscultation bilaterally and equal. No wheezes rales or rhonchi. HEART: Regular rate and rhythm without murmurs ABDOMEN: Soft, generalized abdominal tenderness most focally localized to the upper quadrants, normoactive bowel sounds. No guarding, no rebound. No masses appreciated. EXTREMITIES: Normal range of motion, no pitting or edema. No cyanosis. NEUROLOGICAL: No focal neurological deficits. Moves all extremities spontaneously and on command. PSYCH: Normal mood, normal affect. SKIN: Warm, Dry, normal turgor, no rashes or lesions noted. Course - Re-evaluation Re-evalutation: 02/26/18 01:56 Patient presents with signs and symptoms of an ongoing acute Crohn's flare that has been untreated for the past 1 month. He has generalized abdominal tenderness on exam, has had soft, bloody bowel movements although his hemoglobin is normal. Abdominal exam is notable for generalized abdominal tenderness but no rebound or guarding. Vitals within normal limits, assessment. He was seen previously for similar complaints but was unable to fill the medication as prescribed due to cost. He was started on a steroid infusion, IV fluids, CT abdomen pelvis to confirm that the patient has not had formation of intra-abdominal abscess as he reports subjective fever at home. 02/26/18 04:25 CT scan of the abdomen pelvis unremarkable with exception of ongoing colonic inflammation consistent with a persistent Crohn's flare. The patient will be started on a 30 day steroid taper given his inability to afford the alternative medication regimens. Levsin has been prescribed for abdominal cramping. He has tolerated oral intake without difficulty. Labs otherwise unremarkable without any evidence of anemia in the context of him having blood in his stools. At this time will discharge with return precautions and follow-up recommendations. Verbal discharge instructions given a the bedside and opportunity for questions given. Medication warnings reviewed. Patient is in agreement with this plan and has verbalized understanding of return precautions and the need for primary care follow-up in the next 24-72 hours. - Vital Signs Vital signs: Temp Pulse Resp BP Pulse Ox 98.1 F 84 16 107/65 96 02/26/18 04:06 02/26/18 04:06 02/26/18 04:06 02/26/18 04:06 02/26/18 04:06 - Laboratory Result Diagrams: 02/26/18 00:20 02/26/18 00:20 - Diagnostic Test Radiology reviewed: Reports reviewed Discharge - Discharge Clinical Impression: Generalized abdominal pain, Hematochezia Crohns disease Qualifiers: Gastrointestinal tract location: large intestine Digestive disease complication type: with rectal bleeding Qualified Code(s): K50.111 - Crohn's disease of large intestine with rectal bleeding Condition: Good Disposition: HOME, SELF-CARE Additional Instructions: You were seen today for a Crohn's exacerbation. You are being started on a steroid taper to try to control your symptoms and reduce your discomfort. However, it is critical that you follow-up with a GI doctor at your earliest ability for long-term management of your Crohn's disease. Please return if you develop worsening abdominal pain, fever of greater than 101 F, persistent vomiting, having more frequent bloody bowel movements, or have any other symptoms that are worrisome to you. Prescriptions: Hyoscyamine Sulfate [Levsin-Sl] 0.125 mg SL Q12HP PRN #30 tab.subl PRN Reason: Prednisone [Deltasone 20 mg Tablet] 1 tab PO ASDIR 30 Days tablet
--- NOTE | 2018-02-26 04:21 | RADIOLOGY REPORT (SQ) ---
EXAM DESCRIPTION: CT ABDOMEN PELVIS WITH IV CONTRAST COMPLETED DATE/TME: 02/26/2018 01:55 CLINICAL HISTORY: GENERALIZED abdominal pain, HEMATOCHIZIA. HX OF CROHNS. BUN15 CREA 0.86 COMPARISON: 02/08/2018 TECHNIQUE: CT of the abdomen and pelvis performed following IV administration of 86 mL of Isovue-370. DLP: 1116.12 mGycm FINDINGS: Lung Bases: Mild bibasilar dependent atelectasis/scarring. Bones: No destructive bone lesions identified. Abdomen: Liver: The liver has normal size and density. No intrahepatic mass or biliary dilatation. Gallbladder: No calcified gallstones. Spleen, Pancreas, and Adrenal Glands: The spleen, pancreas, and adrenal glands are unremarkable. Kidneys: The kidneys have normal size and contour without evidence of solid mass or hydronephrosis. Vasculature: Aortoiliac atherosclerosis. IVC is unremarkable. The portal vein is patent. The proximal visceral and renal arteries are patent. Stomach: The stomach and duodenum have normal course. Other: No free intraperitoneal air. No free fluid or lymphadenopathy. Pelvis: Bladder: Urinary bladder is unremarkable. Bowel: Mild wall thickening of the descending colon again identified. Appendix: Normal appendix. Pelvis: Prostate is not enlarged. IMPRESSION: 1. Mild persistent wall thickening of the descending colon. These findings could be seen with inflammatory or infectious colitis. This exam was performed according to our departmental dose-optimization program, which includes automated exposure control, adjustment of the mA and/or kV according to patient size and/or use of iterative reconstruction technique.
[2018-02-26] MEDS ORDERED: HYDROCODONE/ACETAMINOPHEN 5-325 MG (6 TAB/ER DISP) PO PRN (04:24)
[2018-02-26] MEDS ORDERED: ONDANSETRON ODT 4 MG TAB (6 TAB/ER DISP) PO PRN (04:24)
[2018-02-26 05:25] VITALS: BP 109/72
== END 2018-02-26 05:37 | disposition home or self-care (01) ==
LOC: ER 23:25
DX: K50.111 Crohn's disease of large intestine with rectal bleeding (principal); R10.84 Generalized abdominal pain; K92.1 Melena; R19.7 Diarrhea, unspecified
CPT/HCPCS: 99284; 96361; 96374; 96375; 36415; 85027; 80053; 74177; J2920; J1885; J2270; J7030

== ENCOUNTER 2018-06-28 19:23 | Emergency (ER) | payer SELFPAY ==
[2018-06-28] MEDS ORDERED: FENTANYL CITRATE INJ/PF 100 MCG/2 ML AMPUL IV ONE (20:25)
[2018-06-28] MEDS ORDERED: ONDANSETRON HCL INJ/PF 4 MG/2 ML SDV IV ONE (20:25)
[2018-06-28] MEDS ORDERED: NORMAL SALINE 1000 ML 1,000 ML IV ONE (20:25)
[2018-06-28] MEDS ORDERED: METHYLPREDNISOLONE INJ 125 MG/2 ML SDV IV ONE (20:26)
--- NOTE | 2018-06-28 20:27 | ER Document Report ---
ED Medical Screen (RME) - General Chief Complaint: Abdominal Pain Stated Complaint: STOMACH PAIN, SORE JOINTS, MOUTH SORES Time Seen by Provider: 06/28/18 20:25 Notes: 53 years old male with a history of Crohn's disease, cannot afford definitive treatment comes periodically for steroid injections and prescriptions. Presents today with again abdominal pain. No bloody stools. TRAVEL OUTSIDE OF THE [place] IN LAST 30 DAYS: No - Related Data Allergies/Adverse Reactions: No Known Allergies Allergy (Verified 02/07/18 20:39) Past Medical History Renal/ Medical History: Denies: Hx Peritoneal Dialysis GI Medical History: Reports: Hx Crohn's Disease Musculoskeltal Medical History: Reports Hx Musculoskeletal Deformity, Reports Hx Musculoskeletal Trauma Past Surgical History: Reports: Hx Orthopedic Surgery - shrapnel removed from L shoulder - Immunizations Hx Diphtheria, Pertussis, Tetanus Vaccination: Yes Physical Exam - Vital signs Vitals: Temp Pulse Resp BP Pulse Ox 97.8 F 85 16 115/79 97 06/28/18 20:02 06/28/18 20:02 06/28/18 20:02 06/28/18 20:02 06/28/18 20:02 Course - Vital Signs Vital signs: Temp Pulse Resp BP Pulse Ox 97.8 F 85 16 115/79 97 06/28/18 20:02 06/28/18 20:02 06/28/18 20:02 06/28/18 20:02 06/28/18 20:02
[2018-06-28 21:05] LABS: ABSOLUTE BASOPHILS # (AUTO) 0.1 10^3/uL (0.0-0.2); ABSOLUTE EOSINOPHILS # (AUTO) 0.3 10^3/uL (0.0-0.6); ABSOLUTE LYMPHOCYTES (AUTO) 2.2 10^3/uL (0.5-4.7); ABSOLUTE MONOCYTES (AUTO) 0.9 10^3/uL (0.1-1.4); ABSOLUTE NEUT (AUTO) 5.6 10^3/uL (1.7-8.2); BASOPHILS % (AUTO) 0.6 % (0-2); EOSINOPHILS % (AUTO) 3.7 % (0-6); HEMATOCRIT 46.2 % (37.9-51.0); HEMOGLOBIN 15.7 g/dL (13.5-17.0); LYMPHOCYTES % (AUTO) 24.2 % (13-45); MEAN CORPUSCULAR HEMOGLOBIN 30.1 pg (27.0-33.4); MEAN CORPUSCULAR HGB CONC 33.9 g/dL (32.0-36.0); MEAN CORPUSCULAR VOLUME 89 fl (80-97); MONOCYTES % (AUTO) 10.1 % (3-13); PLATELET COUNT 261 10^3/uL (150-450); RED BLOOD COUNT 5.21 10^6/uL (4.35-5.55); RED CELL DISTRIBUTION WIDTH 13.1 % (11.5-14.0); SEGMENTED NEUTROPHILS % (AUTO) 61.4 % (42-78); TOTAL CELLS COUNTED % (AUTO) 100 %
[2018-06-28 21:18] LABS: APPEARANCE,URINE CLEAR; BILIRUBIN,URINE NEGATIVE (NEGATIVE); COLOR,URINE YELLOW; GLUCOSE, URINE NEGATIVE (NEGATIVE); KETONES,URINE TRACE mg/dL (NEGATIVE); LEUKOCYTE ESTERASE,URINE NEGATIVE (NEGATIVE); NITRITE,URINE NEGATIVE (NEGATIVE); PROTEIN,URINE NEGATIVE (NEGATIVE); URINE SPECIFIC GRAVITY 1.009; UROBILINOGEN,URINE NEGATIVE mg/dL (<2.0)
[2018-06-28 21:21] LABS: ALANINE AMINOTRANSFERASE 25 U/L (21-72); ALBUMIN 4.5 g/dL (3.5-5.0); ALKALINE PHOSPHATASE 85 U/L (38-126); ANION GAP 15 (5-19); ASPARTATE AMINO TRANSFERASE 22 U/L (17-59); BILIRUBIN,DIRECT 0.3 mg/dL (0.0-0.4); BILIRUBIN,TOTAL 0.6 mg/dL (0.2-1.3); BLOOD UREA NITROGEN 13 mg/dL (7-20); CALCIUM 10.2 mg/dL (8.4-10.2); CARBON DIOXIDE 26 mmol/L (22-30); CHLORIDE 101 mmol/L (98-107); GLUCOSE 87 mg/dL (75-110); LIPASE 201.5 U/L (23-300); POTASSIUM 4.6 mmol/L (3.6-5.0); SODIUM 141.7 mmol/L (137-145); TOTAL PROTEIN 8.3 g/dL (6.3-8.2)
[2018-06-28] MEDS ORDERED: PREDNISONE 20 MG TABLET PO ONE (23:14)
[2018-06-28] MEDS ORDERED: CLINDAMYCIN HCL 150 MG CAPSULE PO ONE (23:14)
--- NOTE | 2018-06-28 23:18 | ER Document Report ---
ED General - General Chief Complaint: Abdominal Pain Stated Complaint: STOMACH PAIN, SORE JOINTS, MOUTH SORES Time Seen by Provider: 06/28/18 20:25 Notes: Patient is a 53-year-old male with a past medical history of Crohn's disease who presents with 3-4 days of progressively worsening generalized abdominal pain. Does describe it as a diffuse, cramping, moderate to severe pain. Nothing improves or worsens this pain. He states this is very similar to when he has had Crohn's flares in the past. He is not currently on any immune suppressants of has not yet followed up with GI since last time I saw him. He denies any melena or hematochezia. He has had nausea but no vomiting. He does also report that he gets joint aches similar to when he has had Crohn's flares in the past. He has not had a recorded fever at home. He has been able to tolerate oral intake prior to arrival. TRAVEL OUTSIDE OF THE [place] IN LAST 30 DAYS: No - Related Data Allergies/Adverse Reactions: No Known Allergies Allergy (Verified 02/07/18 20:39) Past Medical History - General Information source: Patient - Social History Smoking Status: Current Every Day Smoker Chew tobacco use (# tins/day): No Frequency of alcohol use: None Drug Abuse: None Lives with: Alone Family History: CAD, CVA, Hyperlipidemia, Hypertension, Malignancy Patient has suicidal ideation: No Patient has homicidal ideation: No Renal/ Medical History: Denies: Hx Peritoneal Dialysis GI Medical History: Reports: Hx Crohn's Disease Musculoskeletal Medical History: Reports Hx Musculoskeletal Deformity, Reports Hx Musculoskeletal Trauma Past Surgical History: Reports: Hx Orthopedic Surgery - shrapnel removed from L shoulder - Immunizations Hx Diphtheria, Pertussis, Tetanus Vaccination: Yes Review of Systems - Review of Systems Notes: Constitutional: Negative for fever. Positive for body aches HENT: Negative for sore throat. Eyes: Negative for visual changes. Cardiovascular: Negative for chest pain. Respiratory: Negative for shortness of breath. Gastrointestinal: Positive for abdominal pain Genitourinary: Negative for dysuria. Musculoskeletal: Negative for back pain. Skin: Negative for rash. Neurological: Negative for headaches, weakness or numbness. 10 point ROS negative except as marked above and in HPI. Physical Exam - Vital signs Vitals: Temp Pulse Resp BP Pulse Ox 97.8 F 85 16 115/79 97 11/15/18 20:02 06/28/18 20:02 06/28/18 20:02 06/28/18 20:02 06/28/18 20:02 Interpretation: Normal Notes: PHYSICAL EXAMINATION: GENERAL: Well-appearing, well-nourished and in no acute distress. HEAD: Atraumatic, normocephalic. EYES: Pupils equal round and reactive to light, extraocular movements intact, sclera anicteric, conjunctiva are normal. ENT: nares patent, oropharynx clear without exudates. Moist mucous membranes. NECK: Normal range of motion, supple without lymphadenopathy LUNGS: Breath sounds clear to auscultation bilaterally and equal. No wheezes rales or rhonchi. HEART: Regular rate and rhythm without murmurs ABDOMEN: Soft, nontender, normoactive bowel sounds. No guarding, no rebound. No masses appreciated. EXTREMITIES: Normal range of motion, no pitting or edema. No cyanosis. NEUROLOGICAL: No focal neurological deficits. Moves all extremities spontaneously and on command. PSYCH: Normal mood, normal affect. SKIN: Warm, Dry, normal turgor, no rashes or lesions noted. Course - Re-evaluation Re-evalutation: 06/28/18 23:15 Patient presents with 4 days of generalized abdominal cramping and pain similar to when he has had Crohn's flares in the past. He states this feels identical to previous exacerbations of the same. Abdominal exam is benign without any focal tenderness rebound or guarding. Laboratories likewise unremarkable. Patient has normal vitals without tachycardia or fever. He has tolerated oral intake without difficulty. Very low clinical suspicion given history and exam for any acute surgical pathology including perforated viscus, intra-abdominal abscess, acute appendicitis or biliary pathology. Patient and I have agreed to avoid a CT scan today as he has had recurrent CT scans for most visits to the emergency department. He will be started on a steroid taper, Levsin for pain. He is not currently on any immune suppressants and we have again discussed the need to follow-up with GI to be on chronic immune suppression to avoid recurrent flares. At this time will discharge with return precautions and follow-up recommendations. Verbal discharge instructions given a the bedside and opportunity for questions given. Medication warnings reviewed. Patient is in agreement with this plan and has verbalized understanding of return precautions and the need for primary care follow-up in the next 24-72 hours. - Vital Signs Vital signs: Temp Pulse Resp BP Pulse Ox 97.9 F 80 16 114/79 98 06/28/18 23:33 06/28/18 23:33 06/28/18 23:33 06/28/18 23:33 06/28/18 23:33 - Laboratory Result Diagrams: 06/28/18 20:48 06/28/18 20:48 Laboratory results interpreted by me: 06/28/18 06/28/18 20:41 20:48 Total Protein 8.3 H Urine Ketones TRACE H Discharge - Discharge Clinical Impression: Generalized abdominal pain Crohns disease Qualifiers: Gastrointestinal tract location: unspecified location Digestive disease complication type: unspecified complication Qualified Code(s): K50.919 - Crohn' s disease, unspecified, with unspecified complications Condition: Good Disposition: HOME, SELF-CARE Additional Instructions: Please take the steroids as prescribed as your pain is likely secondary to an acute Crohn's flare. Please return to the emergency department immediately if you develop a fever greater than 100.4 F, persistent vomiting, pass out, began having having rectal bleeding,, or have any other symptoms that are worrisome to you. Please follow-up with a GI physician as soon as possible to get on definitive management for her Crohn's disease to avoid recurrent flares. Prescriptions: Clindamycin HCl 300 mg PO TID #30 capsule Hyoscyamine Sulfate [Levsin 0.125 Tablet] 0.125 mg PO TID PRN #60 tablet PRN Reason: Prednisone [Deltasone 20 mg Tablet] 1 tab PO ASDIR 30 Days tablet
[2018-06-28 23:34] VITALS: BP 114/79
== END 2018-06-28 23:34 | disposition home or self-care (01) ==
LOC: ER 19:23
DX: R10.84 Generalized abdominal pain (principal); K50.919 Crohn's disease, unspecified, with unspecified complications; F17.200 Nicotine dependence, unspecified, uncomplicated
CPT/HCPCS: 99284; 96361; 96374; 96375; 36415; 83690; 85025; 80053; 81001; J3010; J2930; J2405; J7030

== ENCOUNTER 2019-03-18 14:12 | Emergency (ER) | payer SELFPAY ==
[2019-03-18] MEDS ORDERED: ONDANSETRON HCL INJ/PF 4 MG/2 ML SDV IV ONE (14:53)
[2019-03-18] MEDS ORDERED: METHYLPREDNISOLONE INJ 125 MG/2 ML SDV IV ONE (14:53)
[2019-03-18] MEDS ORDERED: DICYCLOMINE HCL 20 MG TABLET PO ONE (14:53)
--- NOTE | 2019-03-18 14:55 | ER Document Report ---
ED Medical Screen (RME) - General Chief Complaint: Bloody Stools Stated Complaint: BLOODY STOOL Time Seen by Provider: 03/18/19 14:48 TRAVEL OUTSIDE OF THE [place] IN LAST 30 DAYS: No - HPI Notes: 03/18/19 14:54 Patient is a 53-year-old male with a history of Crohn's disease who presents complaining of having red blood in his bowel movements intermittent over the past few days. Patient states that he has had generalized abdominal pain associated and nausea without vomiting. Patient reports subjective fever at home. Denies drug allergies. He is urinating normally. Denies BAILEY, fever, neck pain, URI, CP, SOB, dysuria, back pain, or rash. I will order CT scan to further evaluate due to history of Crohn's and reported fever at home for any abscess formation. I have treated and performed a rapid initial assessment of this patient. A comprehensive ED assessment and evaluation of the patient, analysis of test results and completion of medical decision making process will be conducted by additional ED providers. PHYSICAL EXAMINATION: GENERAL: Well-appearing, well-nourished and in no acute distress. A&Ox4. Answers questions appropriately. LUNGS: Breath sounds clear to auscultation bilaterally and equal. No wheezes rales or rhonchi. HEART: Regular rate and rhythm without murmurs, rubs, gallops. ABDOMEN: Mildly firm abdomen (in a chair). No guarding, no rebound. Normal bowel sounds present. No CVA tenderness bilaterally. Noted generalized tenderness (cannot elicit thorough abd exam w/o bed, however). - Related Data Allergies/Adverse Reactions: No Known Allergies Allergy (Verified 03/18/19 14:14) Past Medical History - Social History Frequency of alcohol use: Heavy Drug Abuse: None Renal/ Medical History: Denies: Hx Peritoneal Dialysis GI Medical History: Reports: Hx Crohn's Disease Musculoskeltal Medical History: Reports Hx Musculoskeletal Deformity, Reports Hx Musculoskeletal Trauma Past Surgical History: Reports: Hx Orthopedic Surgery - shrapnel removed from L shoulder - Immunizations Hx Diphtheria, Pertussis, Tetanus Vaccination: Yes Physical Exam - Vital signs Vitals: Temp Pulse Resp BP Pulse Ox 97.8 F 78 18 119/83 97 03/18/19 14:17 03/18/19 14:17 03/18/19 14:17 03/18/19 14:17 03/18/19 14:17 Course - Vital Signs Vital signs: Temp Pulse Resp BP Pulse Ox 97.8 F 78 18 119/83 97 03/18/19 14:17 03/18/19 14:17 03/18/19 14:17 03/18/19 14:17 03/18/19 14:17
[2019-03-18 15:36] LABS: ABSOLUTE BASOPHILS # (AUTO) 0.1 10^3/uL (0.0-0.2); ABSOLUTE EOSINOPHILS # (AUTO) 0.3 10^3/uL (0.0-0.6); ABSOLUTE LYMPHOCYTES (AUTO) 1.6 10^3/uL (0.5-4.7); ABSOLUTE MONOCYTES (AUTO) 0.9 10^3/uL (0.1-1.4); ABSOLUTE NEUT (AUTO) 5.7 10^3/uL (1.7-8.2); BASOPHILS % (AUTO) 1.2 % (0-2); EOSINOPHILS % (AUTO) 3.3 % (0-6); HEMATOCRIT 46.4 % (37.9-51.0); HEMOGLOBIN 15.6 g/dL (13.5-17.0); LYMPHOCYTES % (AUTO) 18.8 % (13-45); MEAN CORPUSCULAR HGB CONC 33.6 g/dL (32.0-36.0); MEAN CORPUSCULAR VOLUME 92 fl (80-97); MONOCYTES % (AUTO) 10.6 % (3-13); PLATELET COUNT 286 10^3/uL (150-450); RED BLOOD COUNT 5.03 10^6/uL (4.35-5.55); RED CELL DISTRIBUTION WIDTH 12.9 % (11.5-14.0); SEGMENTED NEUTROPHILS % (AUTO) 66.1 % (42-78); TOTAL CELLS COUNTED % (AUTO) 100 %; WHITE BLOOD COUNT 8.6 10^3/uL (4.0-10.5)
[2019-03-18 15:59] LABS: ALBUMIN 4.3 g/dL (3.5-5.0); ALKALINE PHOSPHATASE 89 U/L (38-126); ANION GAP 11 (5-19); ASPARTATE AMINO TRANSFERASE 20 U/L (17-59); BILIRUBIN,DIRECT 0.4 mg/dL (0.0-0.4); BILIRUBIN,TOTAL 0.7 mg/dL (0.2-1.3); BLOOD UREA NITROGEN 15 mg/dL (7-20); CALCIUM 9.9 mg/dL (8.4-10.2); CARBON DIOXIDE 26 mmol/L (22-30); CHLORIDE 100 mmol/L (98-107); GLUCOSE 101 mg/dL (75-110); POTASSIUM 4.8 mmol/L (3.6-5.0); TOTAL PROTEIN 7.8 g/dL (6.3-8.2)
[2019-03-18 17:00] LABS: APPEARANCE,URINE CLEAR; BILIRUBIN,URINE NEGATIVE (NEGATIVE); COLOR,URINE YELLOW; GLUCOSE, URINE NEGATIVE (NEGATIVE); KETONES,URINE NEGATIVE (NEGATIVE); LEUKOCYTE ESTERASE,URINE NEGATIVE (NEGATIVE); NITRITE,URINE NEGATIVE (NEGATIVE); PROTEIN,URINE NEGATIVE (NEGATIVE); URINE SPECIFIC GRAVITY 1.013; UROBILINOGEN,URINE NEGATIVE mg/dL (<2.0)
[2019-03-18] MEDS ORDERED: MORPHINE SULFATE 10 MG/ML INJ IV ONE (17:04)
--- NOTE | 2019-03-18 18:02 | RADIOLOGY REPORT (SQ) ---
EXAM DESCRIPTION: CT ABD/PELVIS WITH IV ORAL COMPLETED DATE/TIME: 03/18/2019 5:33 pm REASON FOR STUDY: abd pain, hematochezia, h/o crohn's COMPARISON: CT abdomen pelvis 12/26/2013 TECHNIQUE: CT scan of the abdomen and pelvis performed using helical scanning technique with dynamic intravenous contrast injection. No oral contrast. Images reviewed with lung, soft tissue, and bone windows. Reconstructed coronal and sagittal MPR images reviewed. Delayed images for evaluation of the urinary system also acquired. All images stored on PACS. All CT scanners at this facility use dose modulation, iterative reconstruction, and/or weight based d osing when appropriate to reduce radiation dose to as low as reasonably achievable (ALARA). [facility]: Dose Right [facility]: CareDose [facility]: Dose Right [facility]: Teradose 4D [facility]: IdeaString CONTRAST TYPE AND DOSE: contrast/concentration: Isovue 350.00 mg/ml; Total Contrast Delivered: 99.0 ml; Total Saline Delivered: 71.0 ml 99 mL Omnipaque 350- low osmolar. RENAL FUNCTION: BUN 15, creatinine 0.89 RADIATION DOSE: CT Rad equipment meets quality standard of care and radiation dose reduction techniq ues were employed. CTDIvol: 10.7 - 15.2 mGy. DLP: 1407 mGy-cm.. LIMITATIONS: None. FINDINGS: LOWER CHEST: Bibasilar scarring, unchanged. LIVER: Normal size. No masses. No dilated ducts. SPLEEN: Normal size. No focal lesions. PANCREAS: No masses. No significant calcifications. No adjacent inflammation or peripancreatic fluid collections. Pancreatic duct not dilated. GALLBLADDER: Contracted. ADRENAL GLANDS: No significant masses or asymmetry. RIGHT KIDNEY AND URETER: No solid masses. No significant calcifications. No hydronephrosis or hyd roureter. LEFT KIDNEY AND URETER: No solid masses. No significant calcifications. No hydronephrosis or hydr oureter. AORTA AND VESSELS: No aneurysm. No dissection. Renal arteries, SMA, celiac without stenosis. RETROPERITONEUM: No retroperitoneal adenopathy, hemorrhage or masses. BOWEL AND PERITONEAL CAVITY: Long segment ascending colonic wall thickening from the cecum to the hep atic flexure. Colonic wall thickening to a lesser extent involving the descending colon from the spl enic flexure to the sigmoid colon junction. Mild associated engorgement of the vasa recta. No rim e nhancing fluid collections or free air. No obvious fistula formation. Mild wall thickening of the t erminal ileum. APPENDIX: Normal. PELVIS: No mass. No free fluid. Normal bladder. ABDOMINAL WALL: No masses. No hernias. BONES: No significant or acute findings. Normal appearance of the sacroiliac joints. OTHER: No other significant finding. IMPRESSION: MILD LONG SEGMENT ASCENDING AND TO LESSER EXTENT DESCENDING COLITIS AND MILD TERMINAL IL EITIS, FINDINGS COMPATIBLE WITH THE PROVIDED CLINICAL HISTORY OF CROHN'S DISEASE. NO PERFORATION, AB SCESS FORMATION OR OBVIOUS FISTULA FORMATION. TECHNICAL DOCUMENTATION: JOB ID: [id number] Quality ID # [id number]: Final reports with documentation of one or more dose reduction techniques (e.g., Au tomated exposure control, adjustment of the mA and/or kV according to patient size, use of iterative reconstruction technique) 2010 [employer]- All Rights Reserved Reading location - IP/workstation name: [email or web address]
--- NOTE | 2019-03-18 19:57 | ER Document Report ---
ED General - General Chief Complaint: Bloody Stools Stated Complaint: BLOODY STOOL Time Seen by Provider: 03/18/19 14:48 Primary Care Provider: LUH HOFFMANN MD [ACTIVE STAFF] - Follow up in 3-5 days (FOR GI FOLLOW UP WITHOUT FAIL. ) TRAVEL OUTSIDE OF THE [place] IN LAST 30 DAYS: No - HPI Notes: 53 year old male to the ED with C/O diffuse abdominal pain, diarrhea, and bloody stools for the past 3-5 days. States his last episode of bloody stool was 2 days ago. Admits to weakness as well. States he has a history of Crohns. He is currently not undergoing any treatment with GI. States that he had done well until this episode which feels alot like his prior Crohns. He denies any fevers, chills, vomiting, chest pain, SOB. Admits that he smokes. - Related Data Allergies/Adverse Reactions: No Known Allergies Allergy (Verified 03/18/19 14:14) Past Medical History - General Information source: Patient - Social History Smoking Status: Current Every Day Smoker Frequency of alcohol use: Heavy Drug Abuse: None Family History: CAD, CVA, Hyperlipidemia, Hypertension, Malignancy Patient has suicidal ideation: No Patient has homicidal ideation: No Renal/ Medical History: Denies: Hx Peritoneal Dialysis GI Medical History: Reports: Hx Crohn's Disease Musculoskeletal Medical History: Reports Hx Musculoskeletal Deformity, Reports Hx Musculoskeletal Trauma Past Surgical History: Reports: Hx Orthopedic Surgery - shrapnel removed from L shoulder - Immunizations Hx Diphtheria, Pertussis, Tetanus Vaccination: Yes Review of Systems - Review of Systems Constitutional: Malaise, Weakness. denies: Chills, Fever EENT: No symptoms reported Cardiovascular: denies: Chest pain, Palpitations, Dyspnea, Syncope, Dizziness, Lightheaded Respiratory: denies: Cough, Short of breath Gastrointestinal: Abdominal pain, Diarrhea, Nausea, Blood streaked bowels. denies: Vomiting Genitourinary: No symptoms reported. denies: Flank pain Male Genitourinary: No symptoms reported Musculoskeletal: No symptoms reported Skin: No symptoms reported Hematologic/Lymphatic: No symptoms reported Neurological/Psychological: See HPI, Weakness - generalized weakness -: Yes All other systems reviewed and negative Physical Exam - Vital signs Vitals: Temp Pulse Resp BP Pulse Ox 97.8 F 78 18 119/83 97 03/18/19 14:17 03/18/19 14:17 03/18/19 14:17 03/18/19 14:17 03/18/19 14:17 Interpretation: Normal - General General appearance: Appears well, Alert Notes: chronically ill appearing, poor hygiene, smoker - HEENT Head: Normocephalic, Atraumatic Eyes: Normal Pupils: PERRL - Respiratory Respiratory status: No respiratory distress Chest status: Nontender Breath sounds: Normal Chest palpation: Normal - Cardiovascular Rhythm: Regular Heart sounds: Normal auscultation Murmur: No - Abdominal Inspection: Obese Distension: No distension Bowel sounds: Normal Tenderness: Tender - + TTP diffusely to the abdomen, negative Hartman's sign, negative Rovsing, negative McBurney's point, no guarding or rebound, no evidence for peritonitis. Organomegaly: No organomegaly - Rectal Notes: patient declines rectal exam - Back Back: Normal, Nontender - Neurological Neuro grossly intact: Yes Cognition: Normal Orientation: AAOx4 [place] Coma Scale Eye Opening: Spontaneous [place] Coma Scale Verbal: Oriented Jacy Coma Scale Motor: Obeys Commands Jacy Coma Scale Total: 15 Speech: Normal Motor strength normal: LUE, RUE, LLE, RLE Sensory: Normal - Psychological Associated symptoms: Normal affect, Normal mood - Skin Skin Temperature: Warm Skin Moisture: Dry Skin Color: Normal Course - Re-evaluation Re-evalutation: Impression: Crohns' colitis. patient is feeling much better. He has a stable H and H, noted CT with colitis most consistent with IBD. Will start on Steroids cover with Flagyl and cipro. He is tolerating PO challenge here in the ED. Have encouraged him to stop smoking. Also encouraged him to follow with GI without fail. URged to return here if worsening symptoms such has worsening rectal bleeding, passing out, fevers, worsening pain, or any other concerns. Patient agrees with the plan. Laboratory 03/18/19 03/18/19 03/18/19 15:23 15:23 16:08 WBC 8.6 RBC 5.03 Hgb 15.6 Hct 46.4 MCV 92 MCH 31.0 MCHC 33.6 RDW 12.9 Plt Count 286 Seg Neutrophils % 66.1 Lymphocytes % 18.8 Monocytes % 10.6 Eosinophils % 3.3 Basophils % 1.2 Absolute Neutrophils 5.7 Absolute Lymphocytes 1.6 Absolute Monocytes 0.9 Absolute Eosinophils 0.3 Absolute Basophils 0.1 Sodium 137.4 Potassium 4.8 Chloride 100 Carbon Dioxide 26 Anion Gap 11 BUN 15 Creatinine 0.89 Est GFR ( Amer) > 60 Est GFR (Non-Af Amer) > 60 Glucose 101 Calcium 9.9 Total Bilirubin 0.7 Direct Bilirubin 0.4 Neonat Total Bilirubin Not Reportable Neonat Direct Bilirubin Not Reportable Neonat Indirect Bili Not Reportable AST 20 ALT 22 Alkaline Phosphatase 89 Total Protein 7.8 Albumin 4.3 Lipase 213.0 Urine Color Urine Appearance Urine pH Ur Specific [place] Urine Protein Urine Glucose (UA) Urine Ketones Urine Blood Urine Nitrite Urine Bilirubin Urine Urobilinogen Ur Leukocyte Esterase Urine WBC (Auto) Urine RBC (Auto) Squamous Epi Cells Auto Urine Mucus (Auto) Urine Ascorbic Acid Blood Type O POSITIVE Antibody Screen NEGATIVE 03/18/19 16:25 WBC RBC Hgb Hct MCV MCH MCHC RDW Plt Count Seg Neutrophils % Lymphocytes % Monocytes % Eosinophils % Basophils % Absolute Neutrophils Absolute Lymphocytes Absolute Monocytes Absolute Eosinophils Absolute Basophils Sodium Potassium Chloride Carbon Dioxide Anion Gap BUN Creatinine Est GFR ( Amer) Est GFR (Non-Af Amer) Glucose Calcium Total Bilirubin Direct Bilirubin Neonat Total Bilirubin Neonat Direct Bilirubin Neonat Indirect Bili AST ALT Alkaline Phosphatase Total Protein Albumin Lipase Urine Color YELLOW Urine Appearance CLEAR Urine pH 5.0 Ur Specific [place] 1.013 Urine Protein NEGATIVE Urine Glucose (UA) NEGATIVE Urine Ketones NEGATIVE Urine Blood NEGATIVE Urine Nitrite NEGATIVE Urine Bilirubin NEGATIVE Urine Urobilinogen NEGATIVE Ur Leukocyte Esterase NEGATIVE Urine WBC (Auto) 5 Urine RBC (Auto) 0 Squamous Epi Cells Auto <1 Urine Mucus (Auto) MANY Urine Ascorbic Acid NEGATIVE Blood Type Antibody Screen Abdomen/Pelvis CT 03/18/19 00:00 IMPRESSION: MILD LONG SEGMENT ASCENDING AND TO LESSER EXTENT DESCENDING COLITIS AND MILD TERMINAL ILEITIS, FINDINGS COMPATIBLE WITH THE PROVIDED CLINICAL HISTORY OF CROHN'S DISEASE. NO PERFORATION, ABSCESS FORMATION OR OBVIOUS FISTULA FORMATION. - Vital Signs Vital signs: Temp Pulse Resp BP Pulse Ox 98.4 F 88 20 113/78 98 03/18/19 18:43 03/18/19 20:43 03/18/19 20:43 03/18/19 20:43 03/18/19 20:43 - Laboratory Result Diagrams: 03/18/19 15:23 03/18/19 15:23 - Diagnostic Test Radiology reviewed: Image reviewed, Reports reviewed Discharge - Discharge Clinical Impression: Diffuse abdominal pain Crohn's colitis Qualifiers: Digestive disease complication type: without complication Qualified Code(s): K50.10 - Crohn's disease of large intestine without complications Condition: Stable Disposition: HOME, SELF-CARE Instructions: Crohn's Disease ([facility]) Additional Instructions: FOLLOW UP WITH GI WITHOUT FAIL. FAILURE TO FOLLOW UP COULD LEAD TO SERIOUS CROHN'S COMPLICATIONS SUCH ABSCESS, PERFORATION, NEED FOR SURGICAL INTERVENTION. COMPLETE ALL ANTIBIOTICS AND STEROIDS. PUSH FLUIDS. REST. RETURN IMMEDIATELY IF WORSENING SYMPTOMS SUCH WORSENING ABDOMINAL PAIN, PERSISTENT FEVERS, CHEST PAIN, PASSING OUT, SHORTNESS OF BREATH. STOP SMOKING. Prescriptions: Ciprofloxacin HCl [Cipro 500 mg Tablet] 500 mg PO BID #20 tablet Hyoscyamine Sulfate [Levsin 0.125 Tablet] 0.125 mg PO TID #30 tablet Metronidazole [Flagyl 500 mg Tablet] 500 mg PO TID #30 tablet Prednisone [Deltasone 20 mg Tablet] 20 mg PO DAILY #30 tablet Referrals: LUH HOFFMANN MD [ACTIVE STAFF] - Follow up in 3-5 days (FOR GI FOLLOW UP WITHOUT FAIL. )
[2019-03-18 20:44] VITALS: BP 113/78
== END 2019-03-18 20:44 | disposition home or self-care (01) ==
LOC: ER 14:12
DX: K50.10 Crohn's disease of large intestine without complications (principal); R10.84 Generalized abdominal pain; R10.817 Generalized abdominal tenderness; R19.7 Diarrhea, unspecified; R53.1 Weakness; R53.81 Other malaise; R11.0 Nausea; F17.200 Nicotine dependence, unspecified, uncomplicated
CPT/HCPCS: 99284; 96374; 96375; 86900; 86901; 36415; 86850; 83690; 85025; 80053; 81001; 74177; J3490; J2930; J2270; J2405

== ENCOUNTER 2019-03-25 02:40 | Emergency (ER) | payer SELFPAY ==
[2019-03-25] MEDS ORDERED: ACETAMINOPHEN 325 MG TABLET PO ONE (04:05)
[2019-03-25 04:19] LABS: ABSOLUTE BASOPHILS # (AUTO) 0.1 10^3/uL (0.0-0.2); ABSOLUTE EOSINOPHILS # (AUTO) 0.3 10^3/uL (0.0-0.6); ABSOLUTE LYMPHOCYTES (AUTO) 1.9 10^3/uL (0.5-4.7); ABSOLUTE MONOCYTES (AUTO) 0.9 10^3/uL (0.1-1.4); ABSOLUTE NEUT (AUTO) 5.4 10^3/uL (1.7-8.2); BASOPHILS % (AUTO) 0.7 % (0-2); EOSINOPHILS % (AUTO) 3.1 % (0-6); HEMATOCRIT 43.7 % (37.9-51.0); HEMOGLOBIN 14.8 g/dL (13.5-17.0); MEAN CORPUSCULAR HEMOGLOBIN 31.1 pg (27.0-33.4); MEAN CORPUSCULAR HGB CONC 33.8 g/dL (32.0-36.0); MEAN CORPUSCULAR VOLUME 92 fl (80-97); MONOCYTES % (AUTO) 11.1 % (3-13); PLATELET COUNT 338 10^3/uL (150-450); RED BLOOD COUNT 4.75 10^6/uL (4.35-5.55); SEGMENTED NEUTROPHILS % (AUTO) 63.1 % (42-78); TOTAL CELLS COUNTED % (AUTO) 100 %; WHITE BLOOD COUNT 8.5 10^3/uL (4.0-10.5)
[2019-03-25 04:32] LABS: ALBUMIN 3.9 g/dL (3.5-5.0); ALKALINE PHOSPHATASE 75 U/L (38-126); ANION GAP 8 (5-19); ASPARTATE AMINO TRANSFERASE 23 U/L (17-59); BILIRUBIN,DIRECT 0.4 mg/dL (0.0-0.4); BILIRUBIN,TOTAL 0.7 mg/dL (0.2-1.3); BLOOD UREA NITROGEN 13 mg/dL (7-20); CALCIUM 9.3 mg/dL (8.4-10.2); CARBON DIOXIDE 24 mmol/L (22-30); CHLORIDE 105 mmol/L (98-107); GLUCOSE 100 mg/dL (75-110); POTASSIUM 3.9 mmol/L (3.6-5.0); TOTAL PROTEIN 7.4 g/dL (6.3-8.2)
[2019-03-25 04:44] LABS: APPEARANCE,URINE CLEAR; BILIRUBIN,URINE NEGATIVE (NEGATIVE); GLUCOSE, URINE NEGATIVE (NEGATIVE); KETONES,URINE 20 mg/dL (NEGATIVE); LEUKOCYTE ESTERASE,URINE SMALL (NEGATIVE); NITRITE,URINE NEGATIVE (NEGATIVE); PROTEIN,URINE NEGATIVE (NEGATIVE); URINE SPECIFIC GRAVITY 1.032
[2019-03-25 04:45] LABS: COLOR,URINE DARK YELLOW
[2019-03-25 06:13] LABS: URINE AMPHETAMINES SCREEN NEGATIVE; URINE BARBITURATES SCREEN NEGATIVE; URINE BENZODIAZEPINES SCREEN NEGATIVE; URINE MARIJUANA (THC) SCREEN NEGATIVE; URINE METHADONE SCREEN NEGATIVE
[2019-03-25 06:17] LABS: URINE PHENCYCLIDINE SCREEN NEGATIVE
[2019-03-25] MEDS ORDERED: METHYLPREDNISOLONE INJ 125 MG/2 ML SDV IV ONE (06:45)
[2019-03-25] MEDS ORDERED: KETOROLAC TROMETHAMINE INJ/PF 30 MG/1 ML SDV IV ONE (06:45)
[2019-03-25] MEDS ORDERED: NORMAL SALINE 1000 ML 1,000 ML IV ONE (06:45)
--- NOTE | 2019-03-25 06:58 | ER Document Report ---
ED General Pain - General Chief Complaint: Pain All Over Stated Complaint: PAIN Time Seen by Provider: 03/25/19 06:05 Notes: 53-year-old male with history of Crohn's disease presents to the ER complaining of diffuse abdominal pain and toothache. The patient was just recently admitted last week for his Crohn's. He just had a CAT scan several days ago. Patient states the pain is a little better but still is hurting him. He also complains of right lower jaw pain. The patient denies any falls or trauma. Patient describes the pain in his mouth as severe. Hurts worse when he tries to chew anything or take anything cold. Patient states his abdomen is still bothering him to crampy all over. Nothing makes it better or worse he states blood has stopped in his stools. TRAVEL OUTSIDE OF THE [place] IN LAST 30 DAYS: No - Related Data Allergies/Adverse Reactions: No Known Allergies Allergy (Verified 03/25/19 02:50) Past Medical History - Social History Smoking Status: Current Every Day Smoker Frequency of alcohol use: Occasional Drug Abuse: None Family History: CAD, CVA, Hyperlipidemia, Hypertension, Malignancy Patient has suicidal ideation: No Patient has homicidal ideation: No Renal/ Medical History: Denies: Hx Peritoneal Dialysis GI Medical History: Reports: Hx Crohn's Disease Musculoskeletal Medical History: Reports Hx Musculoskeletal Deformity, Reports Hx Musculoskeletal Trauma Past Surgical History: Reports: Hx Orthopedic Surgery - shrapnel removed from L shoulder - Immunizations Hx Diphtheria, Pertussis, Tetanus Vaccination: Yes Review of Systems - Review of Systems Constitutional: denies: Chills, Fever EENT: Dental problem Gastrointestinal: Abdominal pain, Nausea, Rectal bleeding. denies: Vomiting Genitourinary: denies: Burning, Dysuria Musculoskeletal: denies: Back pain Neurological/Psychological: denies: Headaches -: Yes All other systems reviewed and negative Physical Exam - Vital signs Vitals: Temp Pulse Resp BP Pulse Ox 97.8 F 81 16 115/78 99 03/25/19 02:47 03/25/19 02:47 03/25/19 02:47 03/25/19 02:47 03/25/19 02:47 - Notes Notes: GENERAL_APPEARANCE: well_nourished, alert, cooperative VITALS: reviewed, see vital signs table. HEAD: no_swelling\tenderness on the head. EYES: PERRL, EOMI, conjunctiva_clear. NOSE: no_nasal_discharge. MOUTH: (-)decreased moisture. Overall poor dentition #30 tooth is tender to percussion no obvious dental abscess noted THROAT: no_tonsilar_inflammation, no_airway_obstruction. no_lymphadenopathy NECK: supple, no_neck_tenderness, (-)thyromegaly. BACK: no_back_tenderness. CHEST_WALL: no_chest_tenderness. LUNGS: no_wheezing, no_rales, no_rhonchi, (-)accessory muscle use, good air exchange bilateral. HEART: normal_rate, normal_rhythm, normal_S1, normal_S2, (-)S3, (-)S4, no_murmur, no_rub. ABDOMEN: normal_BS, soft, diffuse_abd_tenderness, (-)guarding, (-)rebound, no_organomegaly, no_abd_masses. EXTREMITIES: good pulses in all_extremities, no_swelling\tenderness in the extremities, no_edema. SKIN: warm, dry, good_color, no_rash. MENTAL_STATUS: speech_clear, oriented_X_3, normal_affect, respon ds_appropriately to questions. Course - Re-evaluation Re-evalutation: 03/25/19 06:57 53-year-old male with a history of Crohn's disease comes in complaining of a toothache right lower jaw. There is no signs of any dental abscess we will place the patient on something for pain and antibiotics. The patient was recently admitted for Crohn's exacerbation. His abdomen is pretty soft and supple there is no rebound or guarding or anything to make do believe there is any significant intra-abdominal pathology I reviewed his CAT scan from last visit showing segmental inflammation. The patient was given a dose of steroids here. 03/25/19 07:32 I did not repeat the patient's CT scan he had one on his last visit. He was given a dose of steroids here will be sent home on a Dosepak for his Crohn's. His repeat abdominal exam is soft and supple without rebound or guarding. Patient complains of toothache mainly. We will put him on some antibiotics for that. I spoke with him I cannot provide him any narcotics he has a drug screen positive for cocaine. We spoke about cessation of cocaine. Patient will be discharged home - Vital Signs Vital signs: Temp Pulse Resp BP Pulse Ox 97.8 F 81 16 115/78 99 03/25/19 02:47 03/25/19 02:47 03/25/19 02:47 03/25/19 02:47 03/25/19 02:47 - Laboratory Result Diagrams: 03/25/19 02:55 03/25/19 02:55 Laboratory results interpreted by me: 03/25/19 04:15 Urine Ketones 20 H Urine Urobilinogen 2.0 H Ur Leukocyte Esterase SMALL H Discharge - Discharge Clinical Impression: Toothache Crohn's colitis Qualifiers: Digestive disease complication type: without complication Qualified Code(s): K50.10 - Crohn's disease of large intestine without complications Cocaine intoxication Qualifiers: Complication of substance-induced condition: uncomplicated Qualified Code(s): F14.920 - Cocaine use, unspecified with intoxication, uncomplicated Condition: Good Disposition: HOME, SELF-CARE Instructions: Toothache ([facility]), Penicillin V K ([facility]), Crohn's Disease ([facility]) Prescriptions: Ibuprofen [Ibu] 800 mg PO TID PRN #24 tablet PRN Reason: Pain Scale Of 4 Methylprednisolone [Medrol Dosepack (4 mg/Tab) 21 Tab/Dosepak] 4 mg PO ASDIR PRN #21 tab.ds.pk PRN Reason: Penicillin V Potassium [Penicillin Vk 500 mg Tablet] 500 mg PO QID #30 tablet
[2019-03-25 07:29] LABS: URINE COCAINE SCREEN UNCONFIRMED POSITIVE
[2019-03-25] MEDS ORDERED: PENICILLIN V POTASSIUM 500 MG TABLET PO ONE (07:38)
[2019-03-25 07:55] VITALS: BP 132/92
== END 2019-03-25 07:57 | disposition home or self-care (01) ==
LOC: ER 02:40
DX: K08.9 Disorder of teeth and supporting structures, unspecified (principal); K50.10 Crohn's disease of large intestine without complications; F14.920 Cocaine use, unspecified with intoxication, uncomplicated; R10.9 Unspecified abdominal pain; M79.10 Myalgia, unspecified site; F17.200 Nicotine dependence, unspecified, uncomplicated
CPT/HCPCS: 36415; 83690; 85025; 80053; 81001; 80307; J2930; J1885; J7030; 96361; 96374; 96375; 99284

== ENCOUNTER → 2019-10-15 | Outpatient (CLI) | payer OTHER ==
[2019-10-15 10:55] LABS: ABSOLUTE BASOPHILS # (AUTO) 0.1 10^3/uL (0.0-0.2); ABSOLUTE EOSINOPHILS # (AUTO) 0.6 10^3/uL (0.0-0.6); ABSOLUTE LYMPHOCYTES (AUTO) 2.4 10^3/uL (0.5-4.7); ABSOLUTE NEUT (AUTO) 5.6 10^3/uL (1.7-8.2); BASOPHILS % (AUTO) 0.6 % (0-2); EOSINOPHILS % (AUTO) 5.9 % (0-6); HEMATOCRIT 50.6 % (37.9-51.0); HEMOGLOBIN 17.8 g/dL (13.5-17.0); LYMPHOCYTES % (AUTO) 24.8 % (13-45); MEAN CORPUSCULAR HEMOGLOBIN 31.7 pg (27.0-33.4); MEAN CORPUSCULAR HGB CONC 35.2 g/dL (32.0-36.0); MEAN CORPUSCULAR VOLUME 90 fl (80-97); MONOCYTES % (AUTO) 10.3 % (3-13); PLATELET COUNT 222 10^3/uL (150-450); RED BLOOD COUNT 5.62 10^6/uL (4.35-5.55); RED CELL DISTRIBUTION WIDTH 16.1 % (11.5-14.0); SEGMENTED NEUTROPHILS % (AUTO) 58.4 % (42-78); TOTAL CELLS COUNTED % (AUTO) 100 %; WHITE BLOOD COUNT 9.7 10^3/uL (4.0-10.5)
[2019-10-15 11:23] LABS: ALBUMIN 4.6 g/dL (3.5-5.0); ALKALINE PHOSPHATASE 120 U/L (38-126); ANION GAP 11 (5-19); ASPARTATE AMINO TRANSFERASE 43 U/L (17-59); BILIRUBIN,DIRECT 0.1 mg/dL (0.0-0.4); BILIRUBIN,TOTAL 0.8 mg/dL (0.2-1.3); BLOOD UREA NITROGEN 14 mg/dL (7-20); C-REACTIVE PROTEIN 8.3 mg/L (<10.0); CALCIUM 9.8 mg/dL (8.4-10.2); CARBON DIOXIDE 25 mmol/L (22-30); CHLORIDE 105 mmol/L (98-107); GLUCOSE 91 mg/dL (75-110); POTASSIUM 4.8 mmol/L (3.6-5.0); TOTAL PROTEIN 8.2 g/dL (6.3-8.2)
[2019-10-15 11:32] LABS: ERYTHROCYTE SEDIMENTATION RATE 3 mm/hr (0-20)
--- NOTE | 2019-10-15 12:14 | RADIOLOGY REPORT (SQ) ---
EXAM DESCRIPTION: PELVIS AP COMPLETED DATE/TIME: 10/15/2019 10:33 am REASON FOR STUDY: BOBY GANGRENE COMPARISON: None. NUMBER OF VIEWS: One view pelvis. LIMITATIONS: None. FINDINGS: No fracture or bone lesion. Symmetric bilateral hip joint space mild narrowing with assoc iated osteophytes. SI joints intact as is the lower lumbar spine. OTHER: No bone erosion to suggest osteomyelitis. No abnormal gas in the soft tissues. IMPRESSION: No acute or suspicious radiographic abnormality. Findings as above. TECHNICAL DOCUMENTATION: JOB ID: [id number] Reading location - IP/workstation name: [email or web address]
== END ==
LOC: OD 10:09
PROVIDERS: ATTEND Nurse Practitioner Family
DX: N49.3 Fournier gangrene (principal)
CPT/HCPCS: 36415; 72170; 80053; 85025; 85652; 86140

== ENCOUNTER 2020-06-24 17:55 | Emergency (ER) | payer OTHER ==
[2020-06-24 18:07] VITALS: BP 107/65
[2020-06-24] MEDS ORDERED: ONDANSETRON HCL INJ/PF 4 MG/2 ML SDV IV ONE (18:32)
[2020-06-24] MEDS ORDERED: MORPHINE SULFATE 10 MG/ML INJ IV ONE (18:32)
[2020-06-24] MEDS ORDERED: RINGERS SOLUTION,LACTATED 1,000 ML IV ONE ×2 (18:33→21:23)
--- NOTE | 2020-06-24 18:38 | ER Document Report ---
ED Medical Screen (RME) - General Stated Complaint: WEAKNESS, GENERAL PAIN Time Seen by Provider: 06/24/20 18:29 Primary Care Provider: ELOY BAÑUELOS [employer], [employer] [Primary Care Provider] - Follow up as needed Mode of Arrival: Ambulatory Information source: Patient Notes: HPI; a 55-year-old male with past medical history significant for Crohn's, presents to the emergency room complaining of general weakness, subjective fever, and multiple episodes of watery stool through his colostomy that started early this morning. He denies any nausea or vomiting. Denies any COVID-19 exposure. Denies any travel. Denies any recent antibiotics. No other ill family members. No medications for his symptoms prior to arrival. PE: Alert and oriented x3. Moderate distress noted. Lungs: Clear to auscultation without rales, rhonchi, wheezes. Heart: Tachycardic without murmurs, rubs, gallops I have greeted and performed a rapid initial assessment of this patient. A comprehensive ED assessment and evaluation of the patient, analysis of test results and completion of the medical decision making process will be conducted by additional ED providers. I have specifically instructed the patient or fami ly members with the patient to immediately return to any nursing staff should anything change in the patient's condition or with their chief complaint. TRAVEL OUTSIDE OF THE [place] IN LAST 30 DAYS: No - Related Data Allergies/Adverse Reactions: No Known Allergies Allergy (Verified 03/25/19 02:50) Past Medical History Renal/ Medical History: Denies: Hx Peritoneal Dialysis GI Medical History: Reports: Hx Crohn's Disease Musculoskeltal Medical History: Reports Hx Musculoskeletal Deformity, Reports Hx Musculoskeletal Trauma Past Surgical History: Reports: Hx Orthopedic Surgery - shrapnel removed from L shoulder - Immunizations Hx Diphtheria, Pertussis, Tetanus Vaccination: Yes Physical Exam - Vital signs Vitals: Temp Pulse Resp BP Pulse Ox 98.6 F 122 H 18 107/65 96 06/24/20 18:01 06/24/20 18:01 06/24/20 18:01 06/24/20 18:01 06/24/20 18:01 Course - Vital Signs Vital signs: Temp Pulse Resp BP Pulse Ox 98.6 F 122 H 18 107/65 96 06/24/20 18:01 06/24/20 18:01 06/24/20 18:01 06/24/20 18:01 06/24/20 18:01 Doctor's Discharge - Discharge Referrals: ELOY BAÑUELOS [employer], [employer] [Primary Care Provider] - Follow up as needed
[2020-06-24 19:27] LABS: ABSOLUTE BASOPHILS # (AUTO) 0.1 10^3/uL (0.0-0.2); ABSOLUTE EOSINOPHILS # (AUTO) 0.2 10^3/uL (0.0-0.6); ABSOLUTE LYMPHOCYTES (AUTO) 1.7 10^3/uL (0.5-4.7); ABSOLUTE MONOCYTES (AUTO) 1.4 10^3/uL (0.1-1.4); ABSOLUTE NEUT (AUTO) 7.3 10^3/uL (1.7-8.2); BASOPHILS % (AUTO) 0.6 % (0-2); EOSINOPHILS % (AUTO) 1.8 % (0-6); HEMATOCRIT 44.6 % (37.9-51.0); HEMOGLOBIN 15.2 g/dL (13.5-17.0); LYMPHOCYTES % (AUTO) 16.2 % (13-45); MEAN CORPUSCULAR HEMOGLOBIN 31.8 pg (27.0-33.4); MEAN CORPUSCULAR HGB CONC 34.1 g/dL (32.0-36.0); MEAN CORPUSCULAR VOLUME 93 fl (80-97); MONOCYTES % (AUTO) 13.1 % (3-13); PLATELET COUNT 241 10^3/uL (150-450); RED BLOOD COUNT 4.79 10^6/uL (4.35-5.55); RED CELL DISTRIBUTION WIDTH 14.3 % (11.5-14.0); SEGMENTED NEUTROPHILS % (AUTO) 68.3 % (42-78); TOTAL CELLS COUNTED % (AUTO) 100 %; WHITE BLOOD COUNT 10.7 10^3/uL (4.0-10.5)
[2020-06-24 19:47] LABS: ALBUMIN 3.9 g/dL (3.5-5.0); ALKALINE PHOSPHATASE 103 U/L (38-126); ANION GAP 10 (5-19); ASPARTATE AMINO TRANSFERASE 30 U/L (17-59); BILIRUBIN,DIRECT 0.2 mg/dL (0.0-0.4); BILIRUBIN,TOTAL 0.9 mg/dL (0.2-1.3); BLOOD UREA NITROGEN 10 mg/dL (7-20); CALCIUM 9.1 mg/dL (8.4-10.2); CARBON DIOXIDE 23 mmol/L (22-30); CHLORIDE 105 mmol/L (98-107); GLUCOSE 93 mg/dL (75-110); POTASSIUM 3.5 mmol/L (3.6-5.0); TOTAL PROTEIN 6.8 g/dL (6.3-8.2)
--- NOTE | 2020-06-24 21:35 | ER Document Report ---
Entered by KEMAR HOWARD SCRIBE 06/24/202009 Acting as scribe for:[facility] DO ED GI/ - General Chief Complaint: Weakness Stated Complaint: WEAKNESS, GENERAL PAIN Time Seen by Provider: 06/24/20 18:29 Primary Care Provider: ELOY BAÑUELOS NP, BOOKKEEPING MACHINE OPERATOR [NURSE PRACTITIONER] - 06/25/20 Mode of Arrival: Ambulatory Information source: Patient Notes: This 55 year old male patient presents to the emergency department today with complaints of generalized weakness and watery stool in his colostomy. Patient has a history of Crohn's disease and is on pain medication at home but he mentions that he hasn't taken anything today for the pain. TRAVEL OUTSIDE OF THE [place] IN LAST 30 DAYS: No - Related Data Allergies/Adverse Reactions: No Known Allergies Allergy (Verified 06/24/20 19:23) Past Medical History - General Information source: Patient - Social History Smoking Status: Current Every Day Smoker Cigarette use (# per day): Yes Frequency of alcohol use: None Drug Abuse: None Lives with: Family Family History: Reviewed & Not Pertinent, CAD, CVA, Hyperlipidemia, Hypertension, Malignancy Patient has homicidal ideation: No GI Medical History: Reports: Hx Crohn's Disease Musculoskeletal Medical History: Reports Hx Musculoskeletal Deformity, Reports Hx Musculoskeletal Trauma Past Surgical History: Reports: Hx Orthopedic Surgery - shrapnel removed from L shoulder - Immunizations Hx Diphtheria, Pertussis, Tetanus Vaccination: Yes Review of Systems - Review of Systems Constitutional: No symptoms reported EENT: No symptoms reported Cardiovascular: No symptoms reported Respiratory: No symptoms reported Gastrointestinal: See HPI, Abdominal pain, Diarrhea Genitourinary: No symptoms reported Male Genitourinary: No symptoms reported Musculoskeletal: No symptoms reported Skin: No symptoms reported Hematologic/Lymphatic: No symptoms reported Neurological/Psychological: No symptoms reported -: Yes All other systems reviewed and negative Physical Exam - Vital signs Vitals: Temp Pulse Resp BP Pulse Ox 98.6 F 122 H 18 107/65 96 06/24/20 18:01 06/24/20 18:01 06/24/20 18:01 06/24/20 18:01 06/24/20 18:01 - Notes Notes: Physical Exam: General: Alert, appears well. HEENT: Normocephalic. Atraumatic. PERRL. Extraocular movements intact. Oropharynx clear. Neck: Supple. Non-tender. Respiratory: No respiratory distress. Clear and equal breath sounds bilaterally. Cardiovascular: Regular rate and rhythm. Abdominal: Mild diffuse tenderness to palpation. Colostomy in LLQ, stoma appear healthy. No distension. Normal Bowel Sounds. Back: No gross abnormalities. Extremities: Moves all four extremities. Upper extremities: Normal inspection. Normal ROM. Lower extremities: Normal inspection. No edema. Normal ROM. Neurological: Normal cognition. AAOx4. Normal speech. Psychological: Normal affect. Normal Mood. Skin: Warm. Dry. Normal color. Course - Re-evaluation Re-evalutation: 06/24/20 21:44 MDM 55 year old with chronic abdominal pain - chrons disease and colostomy and take 10mg prednisone daily in addition to chronic pain medicine - tramadol, oxycodone, gabapentin, acetaminophen. The ct shows no acute process per radi ology. He is improved here. No vomiting and hydration status is adequate as is renal function. - Vital Signs Vital signs: Temp Pulse Resp BP Pulse Ox 98.6 F 122 H 18 107/65 96 06/24/20 18:45 06/24/20 18:45 06/24/20 18:45 06/24/20 18:45 06/24/20 18:45 - Laboratory Result Diagrams: 06/24/20 19:00 06/24/20 19:00 Laboratory results interpreted by me: 06/24/20 06/24/20 06/24/20 19:00 19:00 19:00 WBC 10.7 H RDW 14.3 H Rich % (Auto) 13.1 H Potassium 3.5 L C-Reactive Protein 174.3 H - Diagnostic Test Radiology reviewed: Reports reviewed Discharge - Discharge Clinical Impression: Chronic abdominal pain Acute Crohn's disease Qualifiers: Digestive disease complication type: unspecified complication Qualified Code(s): K50.919 - Crohn's disease, unspecified, with unspecified complications Condition: Stable Disposition: HOME, SELF-CARE Instructions: Abdominal Pain ([facility]), Antinausea Medication ([facility]), Antispasmodics ([facility]), Oral Narcotic Medication ([facility]) Additional Instructions: Please return here immediately for fever or worsening abdominal pain. Take your medicine as directed. Call the primary doctor in follow up 06/25. Clear liquids for 48 hours - this may include broth based soups and jello. Your potassium was a bit low and should be rechecked next week. Prescriptions: Dicyclomine HCl [Bentyl 10 mg Capsule] 1 cap PO TID #15 cap Potassium Chloride 20 meq PO DAILY #5 packet Prednisone 10 mg PO 12 #1 tab.ds.pk Referrals: ELOY BAÑUELOS BOOKKEEPING MACHINE OPERATOR, BOOKKEEPING MACHINE OPERATOR [NURSE PRACTITIONER] - 06/25/20 I personally performed the services described in the documentation, reviewed and edited the documentation which was dictated to the scribe in my presence, and it accurately records my words and actions.
--- NOTE | 2020-06-24 21:53 | RADIOLOGY REPORT (SQ) ---
EXAM DESCRIPTION: CT ABDOMEN PELVIS WITH IV CONTRAST COMPLETED DATE/TME: 06/24/2020 20:13 CLINICAL HISTORY: 55 years, Male, abdominal pain. History of Crohn's disease COMPARISON: CT from 03/18/2019 and 02/26/2018 TECHNIQUE: Axial images with 100 mL of Omnipaque 350. Sagittal coronal reconstruction. Images stored on PACS. All CT scanners at this facility use dose modulation, iterative reconstruction, and/or weight based dosing when appropriate to reduce radiation dose to as low as reasonably achievable (ALARA). FINDINGS: Lung bases, liver, spleen, pancreas, biliary system, adrenal glands, kidneys and para-aortic regions are unremarkable. Mildly atherosclerotic aorta without suspicious narrowing or dilatation. Stomach and proximal and mid small bowel loops are unremarkable. Minimal dilatation of distal small bowel. Mild thickening of terminal ileum increased compared to previous studies. Colonic wall demonstrates very subtle nodular submucosal thickening. There is no overt acute colitis. There is a new left colostomy with associated parastomal herniation of fat .. There is absence of the distal descending colon. CT of the pelvis demonstrates contracted the rectosigmoid colon with blunt ending in the left pelvis. Very minimal submucosal nodular thickening of the sigmoid colon similar to the more proximal colon.. The rectum and perirectal regions are unremarkable. No evidence for free fluid or adenopathy. Vascular structures are unremarkable. No suspicious bony lesions. IMPRESSION: 1. History of Crohn's disease. There is thickening of the terminal ileum which is a new finding compared to previous studies. There is very minimal dilatation of the small bowel proximal to this thickening. 2. New left colostomy. No suspicious inflammatory changes associated with the colostomy. There is mild parastomal herniation of fat. 3. The majority of the colon demonstrates diffuse nodular submucosal thickening. There is no true wall thickening of the colon. The findings may be related to Crohn's disease although more likely chronic. Similar findings in the sigmoid colon. No suspicious pericolonic abnormalities. There is blunt ending of the proximal sigmoid colon with no communication with the descending colon.
[2020-06-24] MEDS ORDERED: METHYLPREDNISOLONE INJ 125 MG/2 ML SDV IV ONE (22:11)
== END 2020-06-24 23:18 | disposition home or self-care (01) ==
LOC: ER 17:55
DX: G89.29 Other chronic pain (principal); R10.9 Unspecified abdominal pain; K50.919 Crohn's disease, unspecified, with unspecified complications; R53.1 Weakness; F17.210 Nicotine dependence, cigarettes, uncomplicated; Z93.3 Colostomy status
CPT/HCPCS: 99285; 96361; 96374; 96375; 36415; 83605; 85025; 86140; 80053; 74177; J2930; J2270; J2405; J7120

== ENCOUNTER 2020-09-11 08:08 | Emergency (ER) | payer OTHER ==
[2020-09-11 09:09] LABS: ABSOLUTE BASOPHILS # (AUTO) 0.1 10^3/uL (0.0-0.2); ABSOLUTE EOSINOPHILS # (AUTO) 0.6 10^3/uL (0.0-0.6); ABSOLUTE MONOCYTES (AUTO) 0.9 10^3/uL (0.1-1.4); ABSOLUTE NEUT (AUTO) 4.8 10^3/uL (1.7-8.2); BASOPHILS % (AUTO) 0.9 % (0-2); EOSINOPHILS % (AUTO) 7.1 % (0-6); HEMATOCRIT 44.9 % (37.9-51.0); HEMOGLOBIN 15.4 g/dL (13.5-17.0); LYMPHOCYTES % (AUTO) 23.9 % (13-45); MEAN CORPUSCULAR HEMOGLOBIN 31.6 pg (27.0-33.4); MEAN CORPUSCULAR HGB CONC 34.2 g/dL (32.0-36.0); MEAN CORPUSCULAR VOLUME 92 fl (80-97); MONOCYTES % (AUTO) 10.9 % (3-13); PLATELET COUNT 193 10^3/uL (150-450); RED BLOOD COUNT 4.87 10^6/uL (4.35-5.55); RED CELL DISTRIBUTION WIDTH 13.7 % (11.5-14.0); SEGMENTED NEUTROPHILS % (AUTO) 57.2 % (42-78); TOTAL CELLS COUNTED % (AUTO) 100 %; WHITE BLOOD COUNT 8.4 10^3/uL (4.0-10.5)
[2020-09-11 09:30] LABS: ALBUMIN 4.4 g/dL (3.5-5.0); ALKALINE PHOSPHATASE 107 U/L (38-126); ANION GAP 11 (5-19); ASPARTATE AMINO TRANSFERASE 24 U/L (17-59); BILIRUBIN,DIRECT 0.2 mg/dL (0.0-0.4); BILIRUBIN,TOTAL 0.5 mg/dL (0.2-1.3); BLOOD UREA NITROGEN 11 mg/dL (7-20); CALCIUM 9.8 mg/dL (8.4-10.2); CARBON DIOXIDE 26 mmol/L (22-30); CHLORIDE 102 mmol/L (98-107); GLUCOSE 101 mg/dL (75-110); POTASSIUM 4.1 mmol/L (3.6-5.0); TOTAL PROTEIN 7.6 g/dL (6.3-8.2)
[2020-09-11] MEDS ORDERED: ONDANSETRON HCL INJ/PF 4 MG/2 ML SDV IV ONE (09:33)
[2020-09-11] MEDS ORDERED: MORPHINE SULFATE 10 MG/ML INJ IV ONE ×2 (09:33→11:57)
[2020-09-11] MEDS ORDERED: NORMAL SALINE 1000 ML 1,000 ML IV ONE (09:33)
--- NOTE | 2020-09-11 09:33 | ER Document Report ---
ED GI/ - General Chief Complaint: Abdominal Pain Stated Complaint: ABDOMINAL PAIN Time Seen by Provider: 09/11/20 09:07 Primary Care Provider: CHRIS SEGURA [Primary Care Provider] - Follow up in 3-5 days Notes: Patient is a 55-year-old male presents to the emergency department with a chief complaint of abdominal pain and perineal pain. 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 States that he had pain about 3 to 4 days ago. Denies any vomiting. States that he has some chills. Denies any contact with anybody who tested positive for COVID-19. TRAVEL OUTSIDE OF THE [place] IN LAST 30 DAYS: No - Related Data Allergies/Adverse Reactions: No Known Allergies Allergy (Verified 06/24/20 19:23) Past Medical History - General Information source: Patient - Social History Smoking Status: Current Every Day Smoker Frequency of alcohol use: Occasional Family History: Reviewed & Not Pertinent, CAD, CVA, Hyperlipidemia, Hype rtension, Malignancy Renal/ Medical History: Denies: Hx Peritoneal Dialysis GI Medical History: Reports: Hx Crohn's Disease Musculoskeletal Medical History: Reports Hx Musculoskeletal Deformity, Reports Hx Musculoskeletal Trauma Past Surgical History: Reports: Hx Orthopedic Surgery - shrapnel removed from L shoulder - Immunizations Hx Diphtheria, Pertussis, Tetanus Vaccination: Yes Review of Systems - Review of Systems Notes: REVIEW OF SYSTEMS: CONSTITUTIONAL : Denies recent illness. Denies recent unintentional weight loss. See HPI. EENT: Denies eye, ear, throat, or mouth pain, discharge, or symptoms. Denies nasal or sinus congestion. CARDIOVASCULAR: Denies chest pain. RESPIRATORY: Denies shortness of breath, cough, congestion, difficulty breathing, or wheezing. GASTROINTESTINAL: See HPI. GENITOURINARY: Denies difficulty urinating, burning, blood in urine, urgency or frequency. MUSCULOSKELETAL: Denies neck and back pain. Denies joint pain or swelling. SKIN: Denies rash, itchiness, or lesions HEMATOLOGIC : Denies easy bruising or bleeding. LYMPHATIC: Denies swollen, painful, enlarged glands. NEUROLOGICAL: Denies no numbness or tingling denies weakness. Denies headache. Denies altered mental status. Denies alteration in speech. PSYCHIATRIC: Denies stress, anxiety, alteration in sleep patterns, or depression. All other systems reviewed and negative. Physical Exam - Vital signs Vitals: Temp Pulse Resp BP Pulse Ox 98.0 F 104 H 20 145/86 H 97 09/11/20 08:13 09/11/20 08:13 09/11/20 08:13 09/11/20 08:13 09/11/20 08:13 - Notes Notes: PHYSICAL EXAMINATION: GENERAL: Appears well, healthy, well-nourished, no acute distress. HEAD: Normocephalic, atraumatic. EYES: PERRL, conjunctiva normal, all extraocular movements intact, sclera nonicteric ENT: Moist mucous membranes. NECK: Supple, no noticeable swelling, redness, rash. Normal range of motion. LUNGS: Equal breath sounds bilaterally and clear to auscultation. No wheezes rales or rhonchi. CARDIOVASCULAR: S1-S2, regular rate, regular rhythm. Radial pulses 2+, normal. ABDOMEN: Normoactive bowel sounds. Soft, tender abdomen at colostomy site. Left lower quadrant colostomy. Tenderness at left groin area. EXTREMITIES: Normal strength and range of motion, no pitting or edema. No cyanosis. NEUROLOGICAL: Moves all extremities upon command. Strength 5/5 in all extremities. PSYCH: Normal mood, normal affect. SKIN: Warm, dry. No rash, lesions, ulcerations noted. Normal skin turgor. Course - Re-evaluation Re-evalutation: 09/11/20 13:24 CT of the abdomen pelvis show colitis. Discussed this case with Dr. Argueta, my attending. We will start the patient on Cipro and Flagyl. Hematology is unremarkable. Chemistries are also unremarkable, other than a slightly elevated lipase. Urinalysis shows a small amount of leukocytes. Will send urine for culture. She is to follow-up with his primary care provider. He is in agreement with this plan. Follow-up precautions were given. Verbal discharge instructions were given to the patient. They verbalized understanding. They are stable for discharge. - Vital Signs Vital signs: Temp Pulse Resp BP Pulse Ox 98.2 F 89 16 139/81 H 98 09/11/20 12:10 09/11/20 12:10 09/11/20 12:10 09/11/20 12:10 09/11/20 12:10 - Laboratory Results Result Diagrams: 09/11/20 08:57 09/11/20 08:57 Laboratory Results Interpreted: 09/11/20 09/11/20 09/11/20 08:57 08:57 11:45 Eos % (Auto) 7.1 H Lipase 442.4 H Ur Leukocyte Esterase SMALL H Critical Laboratory Results Reviewed: No Critical Results - Radiology Results Critical Radiology Results Reviewed: No Critical Results Discharge - Discharge Clinical Impression: Colitis, Perineal pain Abdominal pain Qualifiers: Abdominal location: left lower quadrant Qualified Code(s): R10.32 - Left lower quadrant pain Condition: Stable Disposition: HOME, SELF-CARE Additional Instructions: Colitis, Nonspecific Colitis is an inflammatory disease of the large intestine which affects the lining of the bowel. The cause is uncertain, though it is often caused by an infection. In some cases, the symptoms resolve and can return again in the futu re. Colitis is characterized by abdominal pain, often nausea and vomiting, and either diarrhea or difficulty with bowel movements. Sometimes blood will be present in the bowel movements. Fever is often present as well. Milder cases of colitis can be managed as an outpatient with medications for nausea and vomiting and pain, oral fluid therapy, and perhaps antibiotics, if a bacterial origin is suspected. Antidiarrhea medicine should usually be avoided in colitis. If you have increasing abdominal pain, repeated vomiting, fever, rectal bleeding, or worsening diarrhea, you should return for re-evaluation. Prescriptions: Ciprofloxacin HCl [Cipro 500 mg Tablet] 500 mg PO BID #20 tablet Metronidazole [Flagyl 500 mg Tablet] 500 mg PO Q6H #28 tablet Referrals: [facility] [Primary Care Provider] - Follow up in 3-5 days
[2020-09-11 12:13] LABS: APPEARANCE,URINE CLEAR; BILIRUBIN,URINE NEGATIVE (NEGATIVE); COLOR,URINE YELLOW; GLUCOSE, URINE NEGATIVE (NEGATIVE); KETONES,URINE NEGATIVE (NEGATIVE); LEUKOCYTE ESTERASE,URINE SMALL (NEGATIVE); NITRITE,URINE NEGATIVE (NEGATIVE); PROTEIN,URINE NEGATIVE (NEGATIVE); URINE SPECIFIC GRAVITY 1.011; UROBILINOGEN,URINE NEGATIVE mg/dL (<2.0)
--- NOTE | 2020-09-11 13:11 | RADIOLOGY REPORT (SQ) ---
EXAM DESCRIPTION: CT ABD/PELVIS WITH IV ORAL IMAGES COMPLETED DATE/TIME: 09/11/2020 12:45 pm REASON FOR STUDY: abdominal/perineal pain; hx of colectomy COMPARISON: 03/18/2019 TECHNIQUE: CT scan of the abdomen and pelvis performed using helical scanning technique with dynamic intravenous contrast injection. Oral contrast. Images reviewed with lung, soft tissue, and bone win dows. Reconstructed coronal and sagittal MPR images reviewed. Delayed images for evaluation of the ur inary system also acquired. All images stored on PACS. All CT scanners at this facility use dose modulation, iterative reconstruction, and/or weight based d osing when appropriate to reduce radiation dose to as low as reasonably achievable (ALARA). [facility]: Dose Right [facility]: CareDose [facility]: Dose Right [facility]: Teradose 4D [facility]: A Curated World CONTRAST TYPE AND DOSE: contrast/concentration: Isovue 350.00 mmol/ml; Total Contrast Delivered: 100 .0 ml; Total Saline Delivered: 67.6 ml RENAL FUNCTION: BUN 11 creatinine 0.89 RADIATION DOSE: CT Rad equipment meets quality standard of care and radiation dose reduction techniq ues were employed. CTDIvol: 14.7 - 19.0 mGy. DLP: 1895 mGy-cm.. LIMITATIONS: None. FINDINGS: LOWER CHEST: No significant findings. No nodules or infiltrates. LIVER: Normal size. No masses. No dilated ducts. SPLEEN: Normal size. No focal lesions. PANCREAS: No masses. No significant calcifications. No adjacent inflammation or peripancreatic fluid collections. Pancreatic duct not dilated. GALLBLADDER: No identified stones by CT criteria. No inflammatory changes to suggest cholecystitis. ADRENAL GLANDS: No significant masses or asymmetry. RIGHT KIDNEY AND URETER: No solid masses. No significant calcifications. No hydronephrosis or hyd roureter. LEFT KIDNEY AND URETER: No solid masses. No significant calcifications. No hydronephrosis or hydr oureter. AORTA AND VESSELS: No aneurysm. No dissection. Renal arteries, SMA, celiac without stenosis. RETROPERITONEUM: No retroperitoneal adenopathy, hemorrhage or masses. BOWEL AND PERITONEAL CAVITY: There is a colostomy in the left lower quadrant. There is mild thickeni ng of the wall of the colon. APPENDIX: Normal. PELVIS: No mass. No free fluid. Normal bladder. ABDOMINAL WALL: No masses. No hernias. BONES: No significant or acute findings. OTHER: No other significant finding. IMPRESSION: Left lower quadrant colostomy. Mild wall thickening in the colon. Correlate for coliti s. TECHNICAL DOCUMENTATION: JOB ID: [id number] Quality ID # [id number]: Final reports with documentation of one or more dose reduction techniques (e.g., Au tomated exposure control, adjustment of the mA and/or kV according to patient size, use of iterative reconstruction technique) 2010 [employer]- All Rights Reserved Reading location - IP/workstation name: [email or web address]
[2020-09-11] MEDS ORDERED: METRONIDAZOLE 500 MG TABLET PO ONE (13:27)
[2020-09-11] MEDS ORDERED: CIPROFLOXACIN HCL 500 MG TABLET PO ONE (13:27)
[2020-09-11 13:49] VITALS: BP 139/87
== END 2020-09-11 13:46 | disposition home or self-care (01) ==
LOC: ER 08:08
DX: K52.9 Noninfective gastroenteritis and colitis, unspecified (principal); R10.2 Pelvic and perineal pain; R10.32 Left lower quadrant pain; F17.200 Nicotine dependence, unspecified, uncomplicated
CPT/HCPCS: 99285; 96361; 96374; 96375; 36415; 83690; 85025; 80053; 81001; 74177; J2270; J2405; J7030